=== PATIENT | female | born 1970 | race Caucasian/White ===

== ENCOUNTER → 2019-08-11 11:42 | Outpatient (BNVA) | payer MEDICAID, SELFPAY | PROVIDERS: Family Provider Family Medicine; PCP Family Medicine; Visit Provider Social Worker | DX: F33.2 Major depressive disorder, recurrent severe without psychotic features (principal); F41.1 Generalized anxiety disorder; F60.3 Borderline personality disorder | CPT/HCPCS: 90834 ==

== ENCOUNTER → 2019-08-17 12:25 | Outpatient (BNVA) | payer MEDICAID, SELFPAY | PROVIDERS: Family Provider Family Medicine; PCP Family Medicine; Visit Provider Nurse Practitioner Psychiatric/Mental Health | DX: F33.2 Major depressive disorder, recurrent severe without psychotic features (principal); F41.1 Generalized anxiety disorder; F60.3 Borderline personality disorder; F17.210 Nicotine dependence, cigarettes, uncomplicated | CPT/HCPCS: 99214; 99215 ==

== ENCOUNTER → 2019-09-01 10:53 | Outpatient (BNVA) | payer MEDICAID, SELFPAY | PROVIDERS: Family Provider Family Medicine; PCP Family Medicine; Visit Provider Social Worker | DX: F33.2 Major depressive disorder, recurrent severe without psychotic features (principal); F41.1 Generalized anxiety disorder; F60.3 Borderline personality disorder | CPT/HCPCS: 90834 ==

== ENCOUNTER → 2019-09-07 13:40 | Outpatient (BNVA) | payer MEDICAID, SELFPAY | PROVIDERS: Family Provider Family Medicine; PCP Family Medicine; Referring Provider Family Medicine; Visit Provider Podiatrist Foot & Ankle Surgery | DX: M79.672 Pain in left foot (principal); M25.572 Pain in left ankle and joints of left foot; M79.89 Other specified soft tissue disorders | CPT/HCPCS: 73600; 73630 ==

== ENCOUNTER → 2019-09-14 10:17 | Outpatient (BNVA) | payer MEDICAID, SELFPAY | PROVIDERS: Family Provider Family Medicine; PCP Family Medicine; Visit Provider Nurse Practitioner Psychiatric/Mental Health | DX: F33.2 Major depressive disorder, recurrent severe without psychotic features (principal); F41.1 Generalized anxiety disorder; F60.3 Borderline personality disorder; F17.210 Nicotine dependence, cigarettes, uncomplicated | CPT/HCPCS: 99214 ==

== ENCOUNTER → 2019-09-22 09:47 | Outpatient (BNVA) | payer MEDICAID, SELFPAY | PROVIDERS: Family Provider Family Medicine; PCP Family Medicine; Visit Provider Social Worker | DX: F60.3 Borderline personality disorder (principal); F41.1 Generalized anxiety disorder; F33.2 Major depressive disorder, recurrent severe without psychotic features | CPT/HCPCS: 90834 ==

== ENCOUNTER 2019-11-03 10:50 | Outpatient (CLI) | payer MEDICAID, SELFPAY ==
--- NOTE | 2019-11-03 | XR_ITS ---
WS: [id number] Left knee, 3 views weightbearing, 11/03/2019 Clinical Data: LT KNEE PAIN, BURSITIS Comparison: None. Findings: No fractures or dislocations are seen. The joint spaces are normal. The patella is intact. The soft t issues are unremarkable. XR/XR knee LT 3V* [id number] Impression: Negative left knee.
== END 2019-11-03 10:51 | disposition home or self-care (01) ==
LOC: RADOUTREAD 11:38
PROVIDERS: Family Provider Family Medicine; PCP Family Medicine; Visit Provider Family Medicine
DX: Z01.89 Encounter for other specified special examinations (principal)
CPT/HCPCS: 73562

== ENCOUNTER → 2019-11-07 14:04 | Outpatient (BNVA) | payer MEDICAID, SELFPAY | PROVIDERS: Family Provider Family Medicine; PCP Family Medicine; Visit Provider Social Worker | DX: F41.1 Generalized anxiety disorder (principal); F33.2 Major depressive disorder, recurrent severe without psychotic features; F60.3 Borderline personality disorder | CPT/HCPCS: 90834 ==

== ENCOUNTER → 2019-11-09 07:23 | Outpatient (BNVA) | payer MEDICAID, SELFPAY | PROVIDERS: Family Provider Family Medicine; PCP Family Medicine; Visit Provider Nurse Practitioner Psychiatric/Mental Health | DX: F33.2 Major depressive disorder, recurrent severe without psychotic features (principal); F60.3 Borderline personality disorder; F41.1 Generalized anxiety disorder; F17.210 Nicotine dependence, cigarettes, uncomplicated | CPT/HCPCS: 99214 ==

== ENCOUNTER → 2019-11-17 12:48 | Outpatient (BNVA) | payer MEDICAID, SELFPAY | PROVIDERS: Family Provider Family Medicine; PCP Family Medicine; Visit Provider Social Worker | DX: F33.2 Major depressive disorder, recurrent severe without psychotic features (principal); F41.1 Generalized anxiety disorder; F60.3 Borderline personality disorder | CPT/HCPCS: 90834 ==

== ENCOUNTER → 2019-12-08 08:22 | Outpatient (BNVA) | payer MEDICAID, SELFPAY | PROVIDERS: Family Provider Family Medicine; PCP Family Medicine; Visit Provider Social Worker | DX: F60.3 Borderline personality disorder (principal); F41.1 Generalized anxiety disorder; F33.2 Major depressive disorder, recurrent severe without psychotic features | CPT/HCPCS: 90834 ==

== ENCOUNTER → 2019-12-12 11:00 | Outpatient (BNVA) | payer MEDICAID, SELFPAY | PROVIDERS: Family Provider Family Medicine; Visit Provider Nurse Practitioner Psychiatric/Mental Health | DX: F33.2 Major depressive disorder, recurrent severe without psychotic features (principal); F60.3 Borderline personality disorder; F41.1 Generalized anxiety disorder; F17.210 Nicotine dependence, cigarettes, uncomplicated | CPT/HCPCS: 99214 ==

== ENCOUNTER → 2019-12-29 08:22 | Outpatient (BNVA) | payer MEDICAID, SELFPAY | PROVIDERS: Family Provider Family Medicine; PCP Family Medicine; Visit Provider Social Worker | DX: F60.3 Borderline personality disorder (principal); F41.1 Generalized anxiety disorder; F33.2 Major depressive disorder, recurrent severe without psychotic features | CPT/HCPCS: 90834 ==

== ENCOUNTER → 2020-01-11 07:40 | Outpatient (BNVA) | payer MEDICAID, SELFPAY | PROVIDERS: Family Provider Family Medicine; PCP Family Medicine; Visit Provider Nurse Practitioner Psychiatric/Mental Health | DX: F33.2 Major depressive disorder, recurrent severe without psychotic features (principal); F60.3 Borderline personality disorder; F41.1 Generalized anxiety disorder; F17.210 Nicotine dependence, cigarettes, uncomplicated; F40.01 Agoraphobia with panic disorder | CPT/HCPCS: 99214 ==

== ENCOUNTER → 2020-01-19 08:25 | Outpatient (BNVA) | payer MEDICAID, SELFPAY | PROVIDERS: Family Provider Family Medicine; PCP Family Medicine; Visit Provider Social Worker | DX: F60.3 Borderline personality disorder (principal); F41.1 Generalized anxiety disorder; F33.2 Major depressive disorder, recurrent severe without psychotic features | CPT/HCPCS: 90834 ==

== ENCOUNTER → 2020-01-31 14:54 | Outpatient (BNVA) | payer MEDICAID, SELFPAY | PROVIDERS: Family Provider Family Medicine; PCP Family Medicine; Visit Provider Nurse Practitioner Psychiatric/Mental Health | DX: Z79.899 Other long term (current) drug therapy (principal); F17.210 Nicotine dependence, cigarettes, uncomplicated | CPT/HCPCS: 80053; 80164 ==

== ENCOUNTER → 2020-02-08 07:40 | Outpatient (BNVA) | payer MEDICAID, SELFPAY | PROVIDERS: Family Provider Family Medicine; PCP Family Medicine; Visit Provider Nurse Practitioner Psychiatric/Mental Health | DX: F33.2 Major depressive disorder, recurrent severe without psychotic features (principal); F60.3 Borderline personality disorder; F41.1 Generalized anxiety disorder; F17.210 Nicotine dependence, cigarettes, uncomplicated | CPT/HCPCS: 99214 ==

== ENCOUNTER → 2020-03-14 08:27 | Outpatient (BNVA) | payer MEDICAID, SELFPAY | PROVIDERS: Family Provider Family Medicine; PCP Family Medicine; Visit Provider Nurse Practitioner Psychiatric/Mental Health | DX: F33.2 Major depressive disorder, recurrent severe without psychotic features (principal); F60.3 Borderline personality disorder; F41.1 Generalized anxiety disorder; F17.210 Nicotine dependence, cigarettes, uncomplicated | CPT/HCPCS: 99214 ==

== ENCOUNTER → 2020-04-04 09:59 | Outpatient (BNVA) | payer MEDICAID, SELFPAY | PROVIDERS: Family Provider Family Medicine; PCP Family Medicine; Visit Provider Social Worker Clinical | DX: F33.2 Major depressive disorder, recurrent severe without psychotic features (principal); F60.3 Borderline personality disorder; F41.1 Generalized anxiety disorder | CPT/HCPCS: 90834 ==

== ENCOUNTER → 2020-04-11 07:39 | Outpatient (BNVA) | payer MEDICAID, SELFPAY | PROVIDERS: Family Provider Family Medicine; Visit Provider Nurse Practitioner Psychiatric/Mental Health | DX: F33.2 Major depressive disorder, recurrent severe without psychotic features (principal); F60.3 Borderline personality disorder; F41.1 Generalized anxiety disorder; F17.210 Nicotine dependence, cigarettes, uncomplicated | CPT/HCPCS: 99214 ==

== ENCOUNTER 2020-04-17 07:38 | Outpatient (CLI) | payer MEDICAID, SELFPAY ==
--- NOTE | 2020-04-17 07:43 | MR_ITS ---
WS: [id number] MRI HEAD WITH CONTRAST TECHNIQUE: Sagittal T1, T2 axial, T2 axial FLAIR, axial susceptibility weighted imaging, axial diffus ion weighted images, and coronal T2 images were obtained. Pre and post-T1 axial and post T1 coronal i mages. ADC and FSPGR images. CLINICAL INFORMATION: ENCEPHALOPATHY COMPARISON: None. FINDINGS: No evidence of restricted diffusion to suggest acute ischemia. Ventricular system and basal cisterns are patent. Minimal small vessel changes. Moderate parenchymal volume loss. Normal posterior fossa. N ormal vascular flow voids at the skull base. No extra-axial fluid collections. Paranasal sinuses are well aerated. Mild mucosal thickening right mastoid air cells. No hemosiderin on the susceptibility weighted images. No abnormal gadolinium enhancement. Normal opti c chiasm and pituitary infundibulum.Normal cavernous sinuses and Meckel's cave. MR/MR head wo/w con [id number] IMPRESSION: 1. No evidence of restricted diffusion to suggest acute ischemia. 2. Minimal small vessel changes with moderate parenchymal volume loss. 3. Mild symmetric atrophy involving the temporal lobes and hippocampal formati ons. No underlying signal abnormalities. 4. No abnormal gadolinium enhancement. 5. Normal optic chiasm and pituitary infundibulum.
== END 2020-04-17 07:39 | disposition home or self-care (01) ==
LOC: RADSHAW 07:42
PROVIDERS: PCP Family Medicine; Visit Provider Physician Assistant
DX: G93.40 Encephalopathy, unspecified (principal); G31.9 Degenerative disease of nervous system, unspecified
CPT/HCPCS: 70553; A9579

== ENCOUNTER → 2020-04-19 08:17 | Outpatient (BNVA) | payer MEDICAID, SELFPAY | PROVIDERS: Family Provider Family Medicine; PCP Family Medicine; Visit Provider Social Worker Clinical | DX: F33.2 Major depressive disorder, recurrent severe without psychotic features (principal); F41.1 Generalized anxiety disorder; F60.3 Borderline personality disorder | CPT/HCPCS: 90834 ==

== ENCOUNTER → 2020-05-03 07:52 | Outpatient (BNVA) | payer MEDICAID, SELFPAY | PROVIDERS: Family Provider Family Medicine; Visit Provider Social Worker Clinical | DX: F60.3 Borderline personality disorder (principal); F41.1 Generalized anxiety disorder; F33.2 Major depressive disorder, recurrent severe without psychotic features | CPT/HCPCS: 90834 ==

== ENCOUNTER → 2020-05-16 07:50 | Outpatient (BNVA) | payer MEDICAID, SELFPAY | PROVIDERS: Family Provider Family Medicine; PCP Family Medicine; Visit Provider Nurse Practitioner Psychiatric/Mental Health | DX: F33.2 Major depressive disorder, recurrent severe without psychotic features (principal); F60.3 Borderline personality disorder; F41.1 Generalized anxiety disorder; F17.210 Nicotine dependence, cigarettes, uncomplicated | CPT/HCPCS: 99214 ==

== ENCOUNTER → 2020-05-24 07:58 | Outpatient (BNVA) | payer MEDICAID, SELFPAY | PROVIDERS: Family Provider Family Medicine; Visit Provider Social Worker Clinical | DX: F33.2 Major depressive disorder, recurrent severe without psychotic features (principal); F60.3 Borderline personality disorder; F41.1 Generalized anxiety disorder | CPT/HCPCS: 90834 ==

== ENCOUNTER → 2020-06-07 08:48 | Outpatient (BNVA) | payer MEDICAID, SELFPAY | PROVIDERS: Family Provider Family Medicine; Visit Provider Social Worker Clinical | DX: F33.2 Major depressive disorder, recurrent severe without psychotic features (principal); F41.1 Generalized anxiety disorder; F60.3 Borderline personality disorder | CPT/HCPCS: 90834 ==

== ENCOUNTER → 2020-07-04 11:00 | Outpatient (BNVA) | payer MEDICAID, SELFPAY | PROVIDERS: Family Provider Family Medicine; Visit Provider Social Worker Clinical | DX: F33.2 Major depressive disorder, recurrent severe without psychotic features (principal); F60.3 Borderline personality disorder | CPT/HCPCS: 90834 ==

== ENCOUNTER → 2020-07-11 07:47 | Outpatient (BNVA) | payer MEDICAID, SELFPAY | PROVIDERS: Family Provider Family Medicine; Visit Provider Nurse Practitioner Psychiatric/Mental Health | DX: F33.2 Major depressive disorder, recurrent severe without psychotic features (principal); F60.3 Borderline personality disorder; F41.1 Generalized anxiety disorder; F17.210 Nicotine dependence, cigarettes, uncomplicated | CPT/HCPCS: 99214 ==

== ENCOUNTER → 2020-07-12 08:00 | Outpatient (BNVA) | payer MEDICAID, SELFPAY | PROVIDERS: Family Provider Family Medicine; Visit Provider Social Worker Clinical | DX: F33.2 Major depressive disorder, recurrent severe without psychotic features (principal) | CPT/HCPCS: 90834 ==

== ENCOUNTER → 2020-07-26 08:54 | Outpatient (BNVA) | payer MEDICAID, SELFPAY | PROVIDERS: Family Provider Family Medicine; Visit Provider Social Worker Clinical | DX: F33.2 Major depressive disorder, recurrent severe without psychotic features (principal); F41.1 Generalized anxiety disorder | CPT/HCPCS: 90834 ==

== ENCOUNTER → 2020-08-08 08:15 | Outpatient (BNVA) | payer MEDICAID, SELFPAY | PROVIDERS: Family Provider Family Medicine; Visit Provider Social Worker Clinical | DX: F60.3 Borderline personality disorder (principal); F41.1 Generalized anxiety disorder; F33.2 Major depressive disorder, recurrent severe without psychotic features | CPT/HCPCS: 90834 ==

== ENCOUNTER → 2020-09-20 07:59 | Outpatient (BNVA) | payer MEDICAID, SELFPAY | PROVIDERS: Family Provider Family Medicine; Visit Provider Nurse Practitioner Psychiatric/Mental Health | DX: F33.2 Major depressive disorder, recurrent severe without psychotic features (principal); F60.3 Borderline personality disorder; F41.1 Generalized anxiety disorder; F17.210 Nicotine dependence, cigarettes, uncomplicated | CPT/HCPCS: 99214 ==

== ENCOUNTER → 2020-10-22 07:36 | Outpatient (BNVA) | payer MEDICAID, SELFPAY | PROVIDERS: PCP Family Medicine; Visit Provider Nurse Practitioner Psychiatric/Mental Health | DX: F33.2 Major depressive disorder, recurrent severe without psychotic features (principal); F60.3 Borderline personality disorder; F41.1 Generalized anxiety disorder; F17.210 Nicotine dependence, cigarettes, uncomplicated | CPT/HCPCS: 99214 ==

== ENCOUNTER → 2020-11-23 07:57 | Outpatient (BNVA) | payer MEDICAID, SELFPAY | PROVIDERS: PCP Family Medicine; Visit Provider Nurse Practitioner Psychiatric/Mental Health | DX: F33.2 Major depressive disorder, recurrent severe without psychotic features (principal); F60.3 Borderline personality disorder; F41.1 Generalized anxiety disorder; F17.210 Nicotine dependence, cigarettes, uncomplicated | CPT/HCPCS: 99214 ==

== ENCOUNTER → 2020-11-28 10:12 | Outpatient (BNVA) | payer MEDICAID, SELFPAY | PROVIDERS: PCP Family Medicine; Visit Provider Family Medicine | DX: Z20.822 Contact with and (suspected) exposure to COVID-19 (principal); R06.00 Dyspnea, unspecified | CPT/HCPCS: 87635 ==

== ENCOUNTER 2020-12-03 07:45 | Outpatient (CLI) | payer MEDICAID, SELFPAY ==
--- NOTE | 2020-12-03 11:02 | PFTS_ITS ---
Date of Study:12/03/20 Date of Dictation: 12/04/2020 MECHANICS: Postbronchodilator forced vital capacity (FVC) is reduced. Postbronchodilator forced expiratory volume in one second (FEV1) is moderately reduced 60% FEV1/FVC is reduced. There is significant response to bronchodilators.. FLOW VOLUME LOOP: Sloping of expiratory limb suggestive of airway obstruction. LUNG VOLUMES: TLC is normal. RV is moderately increased 161% suggestive of air trapping. DIFFUSING CAPACITY FOR CARBON MONOXIDE: Mildly reduced 71% . INTERPRETATION: The spirometry consistent with moderate obstructive ventilatory defect. There is significant bronchodilator response. Lung volumes suggestive of moderate air trapping. There is mild gas transfer defect 71%. Please correlate clinically. MTDD
== END 2020-12-03 07:46 | disposition home or self-care (01) ==
PROVIDERS: PCP Family Medicine; Visit Provider Family Medicine
DX: R06.00 Dyspnea, unspecified (principal)
CPT/HCPCS: 94060; 94726; 94729; J7611

== ENCOUNTER → 2020-12-12 08:30 | Outpatient (BNVA) | payer MEDICAID, SELFPAY | PROVIDERS: PCP Family Medicine; Visit Provider Nurse Practitioner Psychiatric/Mental Health | DX: F33.2 Major depressive disorder, recurrent severe without psychotic features (principal); F60.3 Borderline personality disorder; F41.1 Generalized anxiety disorder; F17.210 Nicotine dependence, cigarettes, uncomplicated | CPT/HCPCS: 99214 ==

== ENCOUNTER → 2020-12-17 13:03 | Outpatient (BNVA) | payer MEDICAID, SELFPAY | PROVIDERS: PCP Family Medicine; Visit Provider Podiatrist Foot & Ankle Surgery | DX: M79.671 Pain in right foot (principal) | CPT/HCPCS: 73630 ==

== ENCOUNTER → 2020-12-18 09:06 | Outpatient (BNVA) | payer MEDICAID, SELFPAY | PROVIDERS: PCP Family Medicine; Visit Provider Podiatrist Foot & Ankle Surgery | DX: M20.21 Hallux rigidus, right foot (principal); Z20.822 Contact with and (suspected) exposure to COVID-19 | CPT/HCPCS: 87635 ==

== ENCOUNTER 2020-12-21 08:25 | Day surgery (SDC) | payer MEDICAID, SELFPAY ==
[2020-12-20 17:15] VITALS: BMI 32.8
[2020-12-21 08:38] VITALS: BP 139/93; PULSE 89; RESP 18; TEMP 36.8; O2SAT 98
--- NOTE | 2020-12-21 09:09 | W.PM.OPSUD ---
Surgery/Procedure H&P Update DATE OF PROCEDURE: December 21, 2020 DATE H&P PERFORMED: 12/17/20 H&P UPDATE INFORMATION: I have reviewed H&P completed within last 30 days, I have examined patient prior to procedure, No changes to prior documentation and H&P is in [facility] [place] date indicated PREOP DIAGNOSIS: Hallux rigidus, right PLANNED PROCEDURE: Operation Date: 12/21/20 09:55 Proposed Procedures p Cheilectomy, right foot/ CPT code: 34799 M20.21(Right) - Bandar Alicea DPM
--- NOTE | 2020-12-21 09:22 | ANES.PREANE2 ---
Pre-Anesthetic Assessment Pre-Anesthetic Assessment: Height/Weight: Height 1.6 m Weight 83.915 kg Temp Pulse Resp BP Pulse Ox 98.3 F 89 18 139/93 98 12/21/20 08:38 12/21/20 08:38 12/21/20 08:38 12/21/20 08:38 12/21/20 08:38 Preop Diagnosis: Hallux rigidus, right Proposed Procedure: Operation Date: 12/21/20 09:55 Proposed Procedures p Cheilectomy, right foot/ CPT code: 69409 M20.21(Right) - Bandar Alicea DPM Was Beta Nick taken within 24 hours: N/A Was Clonidine taken within 24 hours: N/A Social: Social History: Tobacco Exam: Pre-Anes Outpt Exam: alert, oriented x 3, clear to auscultation bilaterally and regular rate & rhythm Airway: Submandibular: WNL Cervical ROM: WNL MP: 2 Dentition: Chipped History/ROS: No significant history except as noted and No significant complaints Pulmonary: Pulmonary: COPD CV/HEM: CV/HEM: None reported : : None reported Hepatic: Hepatic: None reported GI: GI: None reported Metabolic: Metabolic: None reported Musc/skel: Musc/skel: None reported Neuropsych: Neuropsych: Bipolar Anesthetic Plan: ASA status: 2 Anesthesia: Anesthesia Evaluation and MAC Risk of > 500 ml blood loss (7ml/kg in children): No PFSH Anesthesia PFSH: Medical History Borderline personality disorder Cigarette smoker motivated to quit Generalized anxiety disorder Major depressive disorder, recurrent severe without psychotic features Nicotine dependence, cigarettes, uncomplicated Family History Brother Stroke Father CAD (coronary artery disease) Grandmother Cancer Lung disease Social History Smoking and tobacco status: current every day smoker cigarettes [ Other cigarette details: Also uses nicotine patches ] Quit status (tobacco): has tried quititng Number of times tried to quit tobacco: 1 Second hand smoke exposure: Yes Smoking risk assessment/counseling performed?: No Alcohol intake: never Marital status: Current occupational status: disabled Current occupation: Waiting for disability Current gender identity: Female Female Reproductive History: Date of last menstrual period: 12/30/17 Data Anesthesia Cardiac Studies: No Data to Display
--- NOTE | 2020-12-21 10:20 | P.OP_ITS ---
Operative Report Date of procedure: December 21, 2020 Pre-op Diagnosis: Hallux rigidus, right Post-op diagnosis: same Post-op Findings: Right hallux rigidus Procedure Done: Cheilectomy, right foot/ CPT code: 79624 Implants: 3-0 Vicryl, 4-0 Vicryl, 4-0 nylon Specimens removed/disposition: None Pathology: none sent Surgeon: Bandar Alicea D.P.M. Contracts Analyst: Nacho Anesthesia: MAC Estimated blood loss: Less than 5 mL Tourniquet time: 30 minutes IV fluids: None Urine output: None Complications: None Findings: Loose chondral bodies and bony hypertrophy with joint space narrowing at the right first metatarsophalangeal joint. Condition: stable Disposition: PACU Brief History: Patient has a progression of pain at her right great toe with stiffness and reduced motion. She has had pain on a daily basis and at this point is no longer responding to anti-inflammatories and supportive shoes, stretching and activity modifications. Pain is daily with simple activities. She would like to discuss surgical options. I recommended a cheilectomy as our initial approach and reserve arthrodesis or joint replacement down the road. Discussed risks and benefits. Risks include pain, bleeding, numbness, infection, recurrence of deformity, progression of arthritic changes to the right great toe and need for further surgical intervention, altered function, damage to adjacent soft tissue structures, numbness and swelling. Informed consent signed by myself and patient. She is n.p.o. since midnight. I initialed the right foot. Patient is agreeable wishes to proceed no guarantees written, expressed or implied. Procedure: Under mild sedation the patient was brought to the operating room and placed on the operating table in supine position. A timeout was performed. Anesthesia was then administered by the anesthesia service. Local anesthesia injected by myself 30 cc of 0.5% Marcaine plain and a right Ruggiero block fashion. Well-padded pneumatic tourniquet applied to the right ankle. Right lower extremity was then scrubbed, prepped and draped utilizing normal aseptic technique. Attention was directed to the dorsal medial aspect of the right first metatarsophalangeal joint where a linear longitudinal incision was made medial and parallel to the extensor houses longus tendon. Dissection was carried down to the level of periosteum and joint capsule which was reflected medially and laterally. Care was taken to preserve and retract neurovascular and tendinous structures. All bleeders were ligated and cauterized as necessary. Head of the first metatarsal was then remodeled to anatomical position utilizing a sagittal saw a rongeur and hand rasp. Attention was then directed to the base of the proximal phalanx of the right hallux where loose chondral bodies were removed utilizing a rongeur and restoring normal curvature and anatomy at the base of the proximal phalanx. Incision was flushed with saline solution. There was joint space narrowing and decreased cartilage observed however there was significant improved range of motion with 55 degrees of dorsiflexion appreciated intraoperatively compared to 20 degrees preoperatively. Incision was further flushed with saline solution and joint capsule closed utilizing 3-0 Vicryl. Subcutaneous tissue closed utilizing 4-0 Vicryl and skin with 4-0 nylon. Incision was dressed with Adaptic, sterile 4 x 4, Kerlix and Gonzalez wrap. Prior to dressings 10 mL of Exparel was injected in a grid like fashion per manufacture recommendation and standard protocol. Cam boot was applied to the right lower extremity. Tourniquet was deflated and a prompt hyperemic response is noted to the distal digits of the right foot. Patient tolerated the procedure and anesthesia well and was transferred to the PACU with vital signs stable\status intact. Following a period of postoperative monitoring she will be discharged home was provided a prescription for pain medication may be weightbearing as tolerated with a cam boot. Will follow-up next week as instructions on discharge paperwork.
[2020-12-21 10:21] VITALS: BP 106/75; PULSE 82; RESP 18; TEMP 36.7; O2SAT 100
[2020-12-21 10:25] VITALS: BP 100/70; PULSE 80; RESP 18; O2SAT 96
--- NOTE | 2020-12-21 10:27 | XR_ITS ---
WS: [id number] RIGHT FOOT: 3 VIEW(S) TECHNIQUE: AP, oblique and lateral. HISTORY: post op COMPARISON: 12/17/2020 Postoperative changes in the soft tissues adjacent to the medial first metatarsal head. Cortical irre gularity and osteophyte at the first metatarsophalangeal joint has been surgically removed. Normal tarsal/metatarsal alignment. Large amount of soft tissue edema around the foot. XR/XR foot RT min 3V* [id number] IMPRESSION: Postoperative changes adjacent to the medial first metatarsal head with removal of the osteophyte from the first metatarsal head.
[2020-12-21 10:35] VITALS: BP 100/84; PULSE 81; RESP 18; TEMP 36.4; O2SAT 98
[2020-12-21 10:43] VITALS: BP 129/85; PULSE 73; RESP 17; TEMP 36.3; O2SAT 96
--- NOTE | 2020-12-21 13:15 | ANE.PACU2 ---
Inpatient post-anesthesia follow up: Airway intact: Yes Vital signs: Temperature 97.3 F Pulse Rate 73 Respiratory Rate 17 Blood Pressure 129/85 Pulse Oximetry 96 Oxygen Delivery Me thod Room Air Oxygen Flow Rate Fraction of Inspir ed Oxygen Hydration adequate: Yes Nausea and vomiting: No Pain level: 2 Mental status: Baseline
== END 2020-12-21 11:00 | disposition home or self-care (01) ==
PROVIDERS: PCP Family Medicine; Visit Provider Podiatrist Foot & Ankle Surgery
PROC: (CPT 28289; principal; 2020-12-21 09:45)
DX: M20.21 Hallux rigidus, right foot (principal); J44.9 Chronic obstructive pulmonary disease, unspecified; F17.210 Nicotine dependence, cigarettes, uncomplicated
CPT/HCPCS: 28289; 73630; 96365; C9290; J0690; J2250; J2704; J3490

== ENCOUNTER → 2021-01-15 07:33 | Outpatient (BNVA) | payer MEDICAID, SELFPAY | PROVIDERS: PCP Family Medicine; Visit Provider Nurse Practitioner Psychiatric/Mental Health | DX: F33.2 Major depressive disorder, recurrent severe without psychotic features (principal); F60.3 Borderline personality disorder; F41.1 Generalized anxiety disorder; F17.210 Nicotine dependence, cigarettes, uncomplicated | CPT/HCPCS: 99214 ==

== ENCOUNTER 2021-01-21 09:41 | Outpatient (CLI) | payer MEDICAID, SELFPAY ==
--- NOTE | 2021-01-21 09:50 | CT_ITS ---
WS: [id number] CT CHEST WITH INTRAVENOUS CONTRAST HISTORY: DECREASED DIFFUSION CAPACITY TECHNIQUE: Contiguous 5 mm axial imaging performed on the thorax. Coronal and sagittal reformats are submitted. All CT scans at [facility] use at least one of these dose optimization techniq ues: automated exposure control; mA and/or kV adjustment per patient size (includes targeted exams wh ere dose is matched to clinical indication); or iterative reconstruction. CONTRAST: Omnipaque 300; 95 mL IV. DLP: 750.81 mGycm COMPARISON: None available. Lungs and central airway: Mild diffuse groundglass attenuation over both lungs. Findings likely relat ed to emphysema. No suspicious mass or pneumonia. No nodules. Pleura: Normal. No pleural effusion. Heart and pericardium: Normal size heart with no pericardial effusion. Mediastinum and arjun: No mediastinum or hilar adenopathy. Vessels: Mild atherosclerosis of the aorta. Normal size pulmonary artery. No aneurysms. Chest wall and lower neck: No soft tissue masses. Upper abdomen: 1.2 cm LEFT hepatic cyst. There is mild heterogeneity within the liver with steatosis along the falciform ligament. Very small mild thickening of the LEFT adrenal gland. No mass. Gallblad shauna is slightly contracted. Osseous structures: No destructive process. CT/CT chest w con* [id number] IMPRESSION: 1. Mild centrilobular emphysema. No pneumonia. No mass. 2. Mild atherosclerosis aorta. 3. Hepatic cyst LEFT lobe.
[2021-01-21] MEDS: iohexol 300 mg/mL 100 mL Btl IV (10:15)
== END 2021-01-21 09:42 | disposition home or self-care (01) ==
PROVIDERS: PCP Family Medicine; Visit Provider Family Medicine
DX: R94.2 Abnormal results of pulmonary function studies (principal); J43.2 Centrilobular emphysema; I70.0 Atherosclerosis of aorta; K76.89 Other specified diseases of liver
CPT/HCPCS: 71260; Q9967

== ENCOUNTER → 2021-01-31 09:08 | Outpatient (BNVA) | payer MEDICAID, SELFPAY | PROVIDERS: PCP Family Medicine; Visit Provider Podiatrist Foot & Ankle Surgery | DX: M20.21 Hallux rigidus, right foot (principal) | CPT/HCPCS: 73630 ==

== ENCOUNTER → 2021-02-19 07:05 | Outpatient (BNVA) | payer MEDICAID, SELFPAY | PROVIDERS: PCP Family Medicine; Visit Provider Nurse Practitioner Psychiatric/Mental Health | DX: F33.2 Major depressive disorder, recurrent severe without psychotic features (principal); F60.3 Borderline personality disorder; F41.1 Generalized anxiety disorder; F17.210 Nicotine dependence, cigarettes, uncomplicated | CPT/HCPCS: 99214 ==

== ENCOUNTER → 2021-03-26 07:40 | Outpatient (BNVA) | payer MEDICAID, SELFPAY | PROVIDERS: PCP Family Medicine; Visit Provider Nurse Practitioner Psychiatric/Mental Health | DX: F33.2 Major depressive disorder, recurrent severe without psychotic features (principal); F60.3 Borderline personality disorder; F41.1 Generalized anxiety disorder; F17.210 Nicotine dependence, cigarettes, uncomplicated | CPT/HCPCS: 99214 ==

== ENCOUNTER → 2021-05-02 07:39 | Outpatient (BNVA) | payer MEDICAID, SELFPAY | PROVIDERS: PCP Family Medicine; Visit Provider Nurse Practitioner Psychiatric/Mental Health | DX: F33.2 Major depressive disorder, recurrent severe without psychotic features (principal); F60.3 Borderline personality disorder; F41.1 Generalized anxiety disorder; F17.210 Nicotine dependence, cigarettes, uncomplicated | CPT/HCPCS: 99214 ==

== ENCOUNTER → 2021-06-03 08:33 | Outpatient (BNVA) | payer MEDICAID, SELFPAY | PROVIDERS: PCP Family Medicine; Visit Provider Nurse Practitioner Psychiatric/Mental Health | DX: F33.2 Major depressive disorder, recurrent severe without psychotic features (principal); F60.3 Borderline personality disorder; F41.1 Generalized anxiety disorder; F17.210 Nicotine dependence, cigarettes, uncomplicated | CPT/HCPCS: 99214 ==

== ENCOUNTER → 2021-06-18 08:29 | Outpatient (BNVA) | payer MEDICAID, SELFPAY | PROVIDERS: PCP Family Medicine; Visit Provider Nurse Practitioner Psychiatric/Mental Health | DX: F33.2 Major depressive disorder, recurrent severe without psychotic features (principal); F60.3 Borderline personality disorder; F41.1 Generalized anxiety disorder; F17.210 Nicotine dependence, cigarettes, uncomplicated | CPT/HCPCS: 99214 ==

== ENCOUNTER → 2021-07-02 08:07 | Outpatient (BNVA) | payer MEDICAID, SELFPAY | PROVIDERS: PCP Family Medicine; Visit Provider Nurse Practitioner Psychiatric/Mental Health | DX: F33.2 Major depressive disorder, recurrent severe without psychotic features (principal); F60.3 Borderline personality disorder; F41.1 Generalized anxiety disorder; F17.210 Nicotine dependence, cigarettes, uncomplicated | CPT/HCPCS: 99214 ==

== ENCOUNTER → 2021-07-16 08:32 | Outpatient (BNVA) | payer MEDICAID, SELFPAY | PROVIDERS: PCP Family Medicine; Visit Provider Nurse Practitioner Psychiatric/Mental Health | DX: F33.2 Major depressive disorder, recurrent severe without psychotic features (principal); F60.3 Borderline personality disorder; F41.1 Generalized anxiety disorder; F17.210 Nicotine dependence, cigarettes, uncomplicated | CPT/HCPCS: 99214 ==

== ENCOUNTER → 2021-07-30 08:13 | Outpatient (BNVA) | payer MEDICAID, SELFPAY | PROVIDERS: PCP Family Medicine; Visit Provider Nurse Practitioner Psychiatric/Mental Health | DX: F33.2 Major depressive disorder, recurrent severe without psychotic features (principal); F60.3 Borderline personality disorder; F41.1 Generalized anxiety disorder; F17.210 Nicotine dependence, cigarettes, uncomplicated | CPT/HCPCS: 99214 ==

== ENCOUNTER → 2021-08-13 07:36 | Outpatient (BNVA) | payer MEDICARE, MEDICAID, SELFPAY | PROVIDERS: PCP Family Medicine; Visit Provider Nurse Practitioner Psychiatric/Mental Health | DX: F33.2 Major depressive disorder, recurrent severe without psychotic features (principal); F60.3 Borderline personality disorder; F41.1 Generalized anxiety disorder; F17.210 Nicotine dependence, cigarettes, uncomplicated | CPT/HCPCS: 99214 ==

== ENCOUNTER → 2021-09-10 08:07 | Outpatient (BNVA) | payer MEDICARE, MEDICAID, SELFPAY | PROVIDERS: PCP Family Medicine; Visit Provider Nurse Practitioner Psychiatric/Mental Health | DX: F33.2 Major depressive disorder, recurrent severe without psychotic features (principal); F60.3 Borderline personality disorder; F41.1 Generalized anxiety disorder; F17.210 Nicotine dependence, cigarettes, uncomplicated | CPT/HCPCS: 99214 ==

== ENCOUNTER → 2021-10-08 08:16 | Outpatient (BNVA) | payer MEDICARE, MEDICAID, SELFPAY | PROVIDERS: PCP Family Medicine; Visit Provider Nurse Practitioner Psychiatric/Mental Health | DX: F33.2 Major depressive disorder, recurrent severe without psychotic features (principal); F60.3 Borderline personality disorder; F41.1 Generalized anxiety disorder; F17.210 Nicotine dependence, cigarettes, uncomplicated | CPT/HCPCS: 99214 ==

== ENCOUNTER → 2021-10-16 08:53 | Outpatient (BNVA) | payer MEDICARE, MEDICAID, SELFPAY | PROVIDERS: PCP Family Medicine; Visit Provider Family Medicine | DX: Z20.822 Contact with and (suspected) exposure to COVID-19 (principal); E87.5 Hyperkalemia | CPT/HCPCS: 80048; 82533; 87635 ==

== ENCOUNTER → 2021-10-23 07:58 | Outpatient (BNVA) | payer MEDICARE, MEDICAID, SELFPAY | PROVIDERS: PCP Family Medicine; Visit Provider Internal Medicine Critical Care Medicine | DX: J44.9 Chronic obstructive pulmonary disease, unspecified (principal); F17.210 Nicotine dependence, cigarettes, uncomplicated; F33.2 Major depressive disorder, recurrent severe without psychotic features | CPT/HCPCS: 99214 ==

== ENCOUNTER → 2021-10-31 09:30 | Outpatient (BNVA) | payer MEDICARE, MEDICAID, SELFPAY | PROVIDERS: PCP Family Medicine; Visit Provider Family Medicine | DX: Z20.822 Contact with and (suspected) exposure to COVID-19 (principal) | CPT/HCPCS: 87635 ==

== ENCOUNTER → 2021-11-05 07:26 | Outpatient (BNVA) | payer MEDICARE, MEDICAID, SELFPAY | PROVIDERS: PCP Family Medicine; Visit Provider Nurse Practitioner Psychiatric/Mental Health | DX: F33.2 Major depressive disorder, recurrent severe without psychotic features (principal); F60.3 Borderline personality disorder; F41.1 Generalized anxiety disorder; F17.210 Nicotine dependence, cigarettes, uncomplicated | CPT/HCPCS: 99214 ==

== ENCOUNTER 2021-11-07 12:50 | Outpatient (CLI) | payer MEDICARE, MEDICAID, SELFPAY ==
--- NOTE | 2021-11-07 14:30 | PFTS_ITS ---
Date of Study:11/07/21 Date of Dictation: MECHANICS: Forced vital capacity (FVC) is normal. Forced expiratory volume in one second (FEV1) is reduced. FEV1/FVC is reduced. FLOW VOLUME LOOP: Reduced flow at all lung volumes with significant scooping. LUNG VOLUMES: Total lung capacity (TLC) is increased. Residual volume (RV) is increased. DIFFUSING CAPACITY FOR CARBON MONOXIDE: Mild reduced. INTERPRETATION: The pulmonary function tests are consistent with moderate airflow obstruction. There is no significant postbronchodilator response. Lung volumes are consistent with hyperinflation and air trapping. Gas exchange (DLCO) is mildly reduced. MTDD
== END 2021-11-07 12:51 | disposition home or self-care (01) ==
LOC: RT 12:54
PROVIDERS: PCP Family Medicine; Visit Provider Family Medicine
DX: J44.9 Chronic obstructive pulmonary disease, unspecified (principal)
CPT/HCPCS: 94060; 94726; 94729; J7611

== ENCOUNTER → 2021-12-03 13:21 | Outpatient (BNVA) | payer MEDICARE, MEDICAID, SELFPAY | PROVIDERS: PCP Family Medicine; Visit Provider Nurse Practitioner Psychiatric/Mental Health | DX: Z63.4 Disappearance and death of family member (principal); F33.2 Major depressive disorder, recurrent severe without psychotic features; F60.3 Borderline personality disorder; F41.1 Generalized anxiety disorder; F17.210 Nicotine dependence, cigarettes, uncomplicated | CPT/HCPCS: 99214 ==

== ENCOUNTER → 2021-12-31 11:09 | Outpatient (BNVA) | payer MEDICARE, MEDICAID, SELFPAY | PROVIDERS: PCP Family Medicine; Visit Provider Nurse Practitioner Psychiatric/Mental Health | DX: F33.2 Major depressive disorder, recurrent severe without psychotic features (principal); F60.3 Borderline personality disorder; F41.1 Generalized anxiety disorder; F17.210 Nicotine dependence, cigarettes, uncomplicated; Z63.4 Disappearance and death of family member | CPT/HCPCS: 99214 ==

== ENCOUNTER → 2022-01-14 07:23 | Outpatient (BNVA) | payer MEDICARE, MEDICAID, SELFPAY | PROVIDERS: PCP Family Medicine; Visit Provider Nurse Practitioner Psychiatric/Mental Health | DX: Z63.4 Disappearance and death of family member (principal); F33.2 Major depressive disorder, recurrent severe without psychotic features; F41.1 Generalized anxiety disorder; F60.3 Borderline personality disorder; F17.210 Nicotine dependence, cigarettes, uncomplicated | CPT/HCPCS: 99214 ==

== ENCOUNTER → 2022-02-13 09:43 | Outpatient (BNVA) | payer MEDICARE, MEDICAID, SELFPAY | PROVIDERS: PCP Family Medicine; Visit Provider Internal Medicine Critical Care Medicine | DX: J44.9 Chronic obstructive pulmonary disease, unspecified (principal); F33.2 Major depressive disorder, recurrent severe without psychotic features; Z87.891 Personal history of nicotine dependence | CPT/HCPCS: 99214 ==

== ENCOUNTER → 2022-02-26 13:07 | Outpatient (BNVA) | payer MEDICARE, MEDICAID, OTHER, SELFPAY | PROVIDERS: PCP Family Medicine; Referring Provider Family Medicine; Visit Provider Orthopaedic Surgery | DX: M25.561 Pain in right knee (principal) | CPT/HCPCS: 99203 ==

== ENCOUNTER 2022-03-24 07:53 | Outpatient (CLI) | payer MEDICARE, MEDICAID, SELFPAY ==
--- NOTE | 2022-03-24 08:01 | FL_ITS ---
WS: [id number] Exam: FL barium swallow [id number] Date/Time of Exam: 03/24/2022 8:35 AM Reason For Exam: PAIN IN THROAT/DYSPHAGIA, OROPHARYNGEAL PHASE Fluoroscopy time: 2min [id number] minutes # of spot films: 9 Swallowing function at the level of the oropharynx was normal. No aspiration or penetration seen. The esophagus is smooth in contour with normal motility. No hiatal hernia or gastroesophageal reflux. Th e esophagus is not displaced. FL/FL barium swallow [id number] IMPRESSION: 1. No sign of mass, stricture, motility disorder or other significant finding. Negative.
== END 2022-03-24 07:54 | disposition home or self-care (01) ==
LOC: RAD 07:53
PROVIDERS: PCP Family Medicine; Visit Provider Specialist
DX: R07.0 Pain in throat (principal); R13.12 Dysphagia, oropharyngeal phase
CPT/HCPCS: 74220

== ENCOUNTER 2022-07-23 13:14 | Outpatient (CLI) | payer MEDICARE, MEDICAID, SELFPAY ==
--- NOTE | 2022-07-23 13:25 | MM_ITS ---
WS: [id number] BILATERAL 3D TOMOSYNTHESIS DIGITAL SCREENING MAMMOGRAPHY WITH CAD CLINICAL INFORMATION: SCREENING HISTORY: Screening mammogram. No current complaints. COMPARISON: 2017 2018. TECHNIQUE: Bilateral CC and MLO views. FINDINGS: Scattered fibroglandular densities bilaterally. No suspicious focal mass, asymmetry, calcifications, or architectural distortion. No evidence of malignancy. MM/[place] [id number] IMPRESSION: BI-RADS: 1-Negative FOLLOW UP: 1 Year Follow-up Recommend return to annual screening mammography.
== END 2022-07-23 13:15 | disposition home or self-care (01) ==
LOC: RAD 13:16
PROVIDERS: PCP Family Medicine; Visit Provider Family Medicine
DX: Z12.31 Encounter for screening mammogram for malignant neoplasm of breast (principal)
CPT/HCPCS: 77063; 77067

== ENCOUNTER 2022-08-18 12:51 | Outpatient (CLI) | payer MEDICARE, MEDICAID, SELFPAY ==
--- NOTE | 2022-08-18 13:23 | CT_ITS ---
WS: [id number] LDCT LUNG CANCER SCREENING TECHNIQUE: Noncontrast CT of the chest with coronal and sagittal reformatted images. CLINICAL INFORMATION: SMOKER COMPARISON: CT chest January 21, 2021 DLP: 78.01 mGy.cm DIvol: Mean CTDIvol: 1.60 (mGy) All CT scans at [facility] use at least one of these dose optimization techniques: automat ed exposure control; mA and/or kV adjustment per patient size (includes targeted exams where dose is matched to clinical indication); or iterative reconstruction. FINDINGS: Mild centrilobular emphysematous changes. Slight fibrosis in the lung apices. No suspicious pulmonary parenchymal abnormalities. Aortic calcification. Normal caliber thoracic aorta. No mediastinal or hilar lymphadenopathy.Small LE FT adrenal adenoma.RIGHT Adrenal gland is normal. Normal GE junction. Stable LEFT hepatic cyst. Mild spondylitic changes thoracic spine. Slight atelectasis in the lingula. CT/CT lung screening [id number] IMPRESSION: LUNG-RADS: 1-Negative FOLLOW UP: 12 Month: Continue annual screening with LDCT
== END 2022-08-18 12:52 | disposition home or self-care (01) ==
LOC: RAD 12:54
PROVIDERS: PCP Family Medicine; Visit Provider Internal Medicine Critical Care Medicine
DX: Z12.2 Encounter for screening for malignant neoplasm of respiratory organs (principal); F17.210 Nicotine dependence, cigarettes, uncomplicated
CPT/HCPCS: 71271

== ENCOUNTER → 2022-08-26 12:17 | Outpatient (BNVA) | payer OTHER, SELFPAY | PROVIDERS: PCP Family Medicine; Visit Provider Nurse Practitioner Psychiatric/Mental Health | DX: Z79.899 Other long term (current) drug therapy (principal) | CPT/HCPCS: 80053; 80061; 82306; 83036 ==

== ENCOUNTER → 2022-11-20 14:14 | Outpatient (BNVA) | payer MEDICARE, MEDICAID, SELFPAY | PROVIDERS: PCP Family Medicine; Referring Provider Dermatology; Visit Provider Physician Assistant | DX: M47.816 Spondylosis without myelopathy or radiculopathy, lumbar region (principal) | CPT/HCPCS: 72110; 99203 ==

== ENCOUNTER → 2022-12-08 09:39 | Outpatient (BNVA) | payer MEDICARE, MEDICAID, SELFPAY | PROVIDERS: PCP Family Medicine; Visit Provider Podiatrist Foot & Ankle Surgery | DX: M19.172 Post-traumatic osteoarthritis, left ankle and foot (principal); S92.012S Displaced fracture of body of left calcaneus, sequela; M19.072 Primary osteoarthritis, left ankle and foot; M24.572 Contracture, left ankle; M72.2 Plantar fascial fibromatosis; M79.672 Pain in left foot; X58.XXXS Exposure to other specified factors, sequela | CPT/HCPCS: 73630; 99214 ==

== ENCOUNTER 2023-01-02 07:37 | Day surgery (SDC) | payer MEDICARE, MEDICAID, SELFPAY ==
[2023-01-01 13:28] VITALS: BMI 25.4
[2023-01-02] VITALS (14 sets, daily range): BP systolic 102–147; BP diastolic 65–92; PULSE 65–83; RESP 14–20; TEMP 36.1–36.6; O2SAT 94–100
--- NOTE | 2023-01-02 | XR_ITS ---
WS: [id number] C-ARM RADIOGRAPHS LEFT CALCANEUS; 1 IMAGES HISTORY: FARRAH PERALTA COMPARISON: Foot radiograph 12/08/2022 Intraoperative imaging during screw fixation across the talocalcaneal joint. XR/XR calcaneus LT min 2V [id number] IMPRESSION: Intraoperative imaging during fixation calcaneal fracture.
[2023-01-02] MEDS: sodium chloride 0.9% 1,000 ML 30 ML IV (09:16)
--- NOTE | 2023-01-02 09:55 | W.PM.OPSUD ---
Surgery/Procedure H&P Update DATE OF PROCEDURE: January 02, 2023 DATE H&P PERFORMED: 12/08/22 CHANGES TO PREVIOUS DOCUMENTATION: Cortisone injection to the right first metatarsal phalangeal joint PREOP DIAGNOSIS: Posttraumatic arthritis left subtalar joint, left gastrocnemius equinus PLANNED PROCEDURE: Operation Date: 01/02/23 09:25 Proposed Procedures p Cortisone injection right plantar fascia, Left gastrocnemius recession and Left subtalar joint fusion 34149, 06317 ,16138(Left) - Bandar Alicea DPM s Gastrocnemius Recession(Left) - Bandar Alicea DPM s Cortisone injection right plantar fascia, Left gastrocnemius recession and Left subtalar joint fusion, Cortisone injection right plantar fascia, Left gastrocnemius recession and Left subtalar joint fusion, M72.2, M62.462, M19.172, S92.012S, M19.072(Left) - Bandar Alicea DPM
--- NOTE | 2023-01-02 09:57 | P.OP_ITS ---
Operative Report Date of procedure: January 02, 2023 Pre-op diagnosis: Posttraumatic arthritis left subtalar joint Exostosis left cuboid Right plantar fasciitis Post-op diagnosis: Same Procedure done: Left subtalar joint arthrodesis. CPT code 49409 Exostectomy left cuboid. CPT code 89334 Cortisone injection right plantar fascia. CPT code 41321 Implants: [place] 7 mm screw x2, headed [place] V92 2-0 Vicryl, 3-0 Vicryl, 4-0 nylon Surgeon: Bandar Alicea D.P.M. Food Service Sales Representatives: Kayce Estimated blood loss: 5 54 IV fluids: None Urine output: None Complications: None Brief History: Patient examined and evaluated, findings and treatment options discussed with patient at length. Left foot x-ray 3 views taken and reviewed.? X-ray findings correspond to patient's clinical findings which include arthrosis of the left subtalar joint with depression of the posterior facet sequela of calcaneal fracture approximately 14 years ago.? She also has arthrosis of the calcaneocuboid joint more prominent at the lateral aspect with joint space narrowing, enthesophytes and subchondral sclerosis, this also correlates clinically to the area of maximum pain. Patient wishing to discuss surgical options.? She has failed orthotics, supportive shoes, activity modifications, anti-inflammatories.? Recommended left triple arthrodesis.? I reviewed at length with the patient, the risks, potential complications, benefits, alternatives, expectations, and typical outcomes associated with the surgery. The risks and potential complications were explained in detail, including but not limited to infection, wound dehiscence or soft tissue complications, bleeding and hematoma, chronic edema, neuritis or nerve damage producing numbness or chronic pain, CRPS, failure to relieve pain or worsening pain, thick / painful / unsightly scar, limited motion / stiffness, malposition, delayed union, malunion, or nonunion, fracture, reaction to implants, anesthetic complications, venous thromboembolism, and deformity recurrence.? I discussed the notion of no regrets with the patient as it pertains to complications and outcomes. The patient seemed to understand the nature of the proposed care and required convalescence. They asked appropriate questions, answered to their satisfaction. They are aware no guarantees can be made as to a satisfactory outcome and they understand there may be other possible unforeseen complications or outcomes not listed here that will be treated accordingly if they arise. There were no written or implied guarantees given to the patient. They gave informed consent to proceed.? Discussed postoperative immobilization and nonweightbearing for 8 weeks and potentially longer depending on healing of fusion sites. After further discussion discussed isolated left subtalar joint fusion, exostectomy of the left cuboid and right plantar fascia injection, this is her plan A that she would like to proceed with. Procedure: Under mild sedation the patient was brought to the operating room and placed onto the operating table in supine position. Timeout was performed. Anesthesia was then administered by the anesthesia service. Of note a left popliteal block was performed preoperatively per anesthesia. Well-padded pneumatic tourniquet was applied to the left ankle. A cortisone injection was administered to the right plantar fascia utilizing a one-to-one mixture of dexamethasone and Kenalog 40 total of 2 cc were injected via medial approach to the right plantar fascia, prior to injection skin was prepped with alcohol, Band-Aid was applied. The left lower extremity was then scrubbed, prepped and draped utilizing normal aseptic technique. Left foot and ankle were exanguinated with an Esmarch bandage and the left ankle tourniquet was inflated to 250 mmHg. A curvilinear incision was made along the lateral aspect of the foot and ankle, centered over the sinus tarsi region. The subcutaneous tissue and superficial fascia were dissected using electrocautery. Care was taken to preserve the lateral neurovascular structures throughout the procedure. The incision was carried down to the level of the joint capsule. The capsule was then opened using a longitudinal incision, providing access to the subtalar joint. The articular surfaces of the joint were evaluated, and the remaining cartilage was thoroughly debrided using rongeurs and a high-speed gerard. After adequate preparation of the joint surfaces, two parallel drill holes were created using a cannulated drill. The drill holes were aimed from the calcaneus into the talus, ensuring proper alignment and positioning for fusion. Guide wires were then inserted into the drill holes, confirming appropriate placement under fluoroscopic guidance. The wires were used to guide the insertion of 7 mm headed screws most posterior screw oriented perpendicular to the posterior facet and second screw from inferior to superior at the middle facet, which were passed over the wires and into the talus and calcaneus. Fluoroscopy was used to verify the position of the screws and confirm proper alignment of the joint. Once satisfactory positioning was achieved, the screws were tightened to achieve compression across the fusion site. Attention was then directed to the calcaneocuboid articulation where a bony exostosis was appreciated dominantly on the cuboid, this bossing was identified and resected utilizing a rongeur with all rough edges smoothed with a hand rasp The joint capsule and surrounding soft tissues were meticulously repaired using absorbable sutures. Hemostasis was ensured, and the wound was irrigated with sterile saline solution. The incision was closed in layers, with deep sutures used for the subcutaneous tissues and nylon sutures for skin closure. The incision was dressed with Adaptic, sterile 4 x 4's, Kerlix and Gonzalez wrap followed by application of a cam boot. Patient tolerated the procedure and anesthesia well and was transferred to the PACU with vital signs stable and vascular status intact. Following a period of postoperative monitoring patient was discharged home She is to be nonweightbearing and elevate her left foot while resting. Was given at home care instructions and follow-up as well as my cell phone number to contact with any postoperative questions or concerns.
[2023-01-02] MEDS: ceFAZolin 2,000 MG in sodium chloride 0.9% (plus) 50 ML 100 MG IV (10:03)
[2023-01-02] MEDS: dexamethasone 4 mg/mL INJ INJECTION (10:17)
--- NOTE | 2023-01-02 11:30 | PC.NURSE ---
Pt arrived to PACU, resting comfortably, dressing to left foot C/D/I, left toes p/w/d, cap refill < 3 seconds, FOB elevated.
[2023-01-02] MEDS: fentaNYL 50 mcg/mL INJ 2mL IVP ×2 (11:38→11:52)
[2023-01-02] MEDS: HYDROcodone-acetaminophen 10-325 mg Tablet 1 TAB PO (12:58)
--- NOTE | 2023-01-02 14:13 | ANES.PREANE2 ---
Pre-Anesthetic Assessment Height/Weight: Height 1.63 m Weight 67.132 kg Temp Pulse Resp BP Pulse Ox O2 Del Method 97.9 F 70 16 147/84 99 Room Air 01/02/23 13:05 01/02/23 13:05 01/02/23 13:05 01/02/23 13:05 01/02/23 13:05 01/02/23 13:05 Preop Diagnosis: Posttraumatic arthritis left subtalar joint, left gastrocnemius equinus Operation Date: 01/02/23 09:25 Proposed Procedures p Cortisone injection right plantar fascia, Left gastrocnemius recession and Left subtalar joint fusion 67090, 74985 ,76570(Left) - Bandar Alicea DPM s Gastrocnemius Recession(Left) - Bandar Alicea DPM s Cortisone injection right plantar fascia, Left gastrocnemius recession and Left subtalar joint fusion, Cortisone injection right plantar fascia, Left gastrocnemius recession and Left subtalar joint fusion, M72.2, M62.462, M19.172, S92.012S, M19.072(Left) - Bandar Alicea DPM Familial anesthetic complications: none Was Beta Nick taken within 24 hours: N/A Was Clonidine taken within 24 hours: N/A Last intake: Intake Last Liquid Date 01/01/23 Last Liquid Time 23:55 Last Solid Date 01/01/23 Last Solid Time 22:00 Social Tobacco and No alcohol Exam alert, oriented x 3 and regular rate & rhythm Airway Submandibular: within normal limits Cervical ROM: within normal limits Mallampati: Class II Pulmonary Chronic Obstructive Pulmonary Disease Neuropsych Anxiety, Bipolar and Depression Anesthetic Plan ASA status: 2 Anesthesia: General and Regional (specify below) (left pop blk) Medications/Allergies Home Medications Medication Instructions Recorded Confirmed Last Taken Type acetaminophen 500 mg tablet 1,000 mg PO DAILY PRN pain 08/16/19 01/01/23 01/01/23 History (Tylenol Extra Strength) albuterol sulfate 90 mcg/actuation 2 puff inhalation Q6H PRN allergies 01/15/21 01/01/23 01/02/23 07:00 History aerosol inhaler umeclidinium 62.5 mcg-vilanterol 1 inh inhalation DAILY 05/13/21 01/01/23 01/02/23 07:00 History 25 mcg/actuation powdr for inhalation (Anoro Ellipta) omeprazole 20 mg capsule,delayed 20 mg PO DAILY 03/18/22 01/01/23 01/02/23 07:00 History release loratadine 10 mg tablet (Claritin) 10 mg PO DAILY 11/19/22 01/01/23 01/02/23 07:00 History bupropion HCl 75 mg tablet 75 mg PO BID #60 tabs 12/16/22 01/01/23 01/02/23 07:00 Rx gabapentin 300 mg capsule 300 mg PO DIRECTED #120 caps 12/16/22 01/02/23 01/02/23 07:00 Rx propranolol 10 mg tablet 10 mg PO DAILY PRN anxiety #30 tabs 12/16/22 01/02/23 01/02/23 07:00 Rx quetiapine 150 mg tablet 150 mg PO .9 pm #30 tabs 12/16/22 01/01/23 01/01/23 20:00 Rx hydrocodone 10 mg-acetaminophen 1 tab PO Q6H PRN pain 7 days #28 01/02/23 Unknown Rx 325 mg tablet tabs Allergies Allergy/AdvReac Type Severity Reaction Status Date / Time No Known Allergies Allergy Verified 01/01/23 13:23 [facility] Anesthesia Medical History (Updated 12/12/22 @ 17:04 by Bandar Alicea DPM) Borderline personality disorder COPD (chronic obstructive pulmonary disease) Generalized anxiety disorder Major depressive disorder, recurrent severe without psychotic features Nicotine dependence, other tobacco product, uncomplicated electronic cigarette/vaping nicotine, and nicotine pouches (8 mg of nicotine) Psychiatric care Family History Brother Stroke Father CAD (coronary artery disease) Grandmother Cancer Lung disease Social History Smoking and tobacco status: former smoker (Quit, using nicotine pouches.) Quit status (tobacco): has quit using tobacco Year quit tobacco: November 2021 Former quit date comment: 1 ppd X 35 years Second hand smoke exposure: Yes Smoking risk assessment/counseling performed?: Yes Alcohol intake: never Substance/Drug Use: never Adopted: No Caregiver/support person: No Lives independently: Yes Household members: none Housing: Apartment Marital status: Marital status details: since 2005 Number of children: 2 Number of grandchildren: 2 Highest education level completed: Some College, No Degree service: No Current occupational status: disabled Current occupational exposures/hazards: No Pets and animals: Yes (sugar glyder) Pets & animals: dog(s) Leisure activites: reading and other Leisure activities details: watch TV, dog sitting Sexually active: No Do you think of yourself as: Straight/Heterosexual Current gender identity: Female Jodee/Scientology: Jehovah'S Witness Special jodee needs: No Agree to transfusion: Yes Financial difficulty paying for basics: Not Very Hard Female Reproductive History Para: 2 Spontaneous abortions: No Data Anesthesia Cardiac Studies: No Data to Display Anesthesia Procedures Nerve Block Nerve Block 1: Main Anesthesia: general anesthesia Time Out Performed: Yes Consent: requested by attending/covering physician, from patient, risks and benefits reviewed and patient agrees to proceed Nerve block location: popliteal (left) Anesthesia monitors applied: pulse oximetry, EKG, BP cuff and oxygen Nerve block position: supine Anesthetic Used: ropivicaine 0.5% Amount of anesthesia used (mL): 30 Ultrasound used to: recognize landmarks Nerve Stimulator Used?: No Interscalene/Femoral BLK: 4 stimuplex 21 g needle used for position and inplane approach Injection: neg aspiration of heme Patient Tolerated Procedure: well Complications: none
--- NOTE | 2023-01-02 14:27 | ANE.PACU2 ---
Inpatient post-anesthesia follow up: Airway intact: Yes Vital signs: Temperature 97.9 F Pulse Rate 70 Respiratory Rate 16 Blood Pressure 147/84 Pulse Oximetry 99 Oxygen Delivery Me thod Room Air Oxygen Flow Rate Fraction of Inspir ed Oxygen Hydration adequate: Yes Nausea and vomiting: No Pain level: 3 Mental status: Baseline
== END 2023-01-02 13:25 | disposition home or self-care (01) ==
PROVIDERS: PCP Family Medicine; Visit Provider Podiatrist Foot & Ankle Surgery
PROC: (CPT 96372; 2023-01-02 09:15)
PROC: (CPT 28725; 2023-01-02 09:15)
DX: M19.172 Post-traumatic osteoarthritis, left ankle and foot (principal); M89.8X7 Other specified disorders of bone, ankle and foot; M72.2 Plantar fascial fibromatosis; F17.290 Nicotine dependence, other tobacco product, uncomplicated; J44.9 Chronic obstructive pulmonary disease, unspecified; F32.A Depression, unspecified; F41.1 Generalized anxiety disorder
CPT/HCPCS: 20550; 28122; 28725; 73650; 76000; C1713; C1762; J0690; J1100; J2405; J2704; J2795; J3010; J3490; J7030

== ENCOUNTER → 2023-01-08 12:42 | Outpatient (BNVA) | payer MEDICARE, MEDICAID, SELFPAY | PROVIDERS: PCP Family Medicine; Visit Provider Podiatrist Foot & Ankle Surgery | DX: Z98.890 Other specified postprocedural states (principal); M19.172 Post-traumatic osteoarthritis, left ankle and foot; M19.072 Primary osteoarthritis, left ankle and foot; S92.012S Displaced fracture of body of left calcaneus, sequela; M24.572 Contracture, left ankle; M72.2 Plantar fascial fibromatosis; X58.XXXS Exposure to other specified factors, sequela | CPT/HCPCS: 99024 ==

== ENCOUNTER → 2023-01-15 12:48 | Outpatient (BNVA) | payer MEDICARE, MEDICAID, SELFPAY | PROVIDERS: PCP Family Medicine; Visit Provider Podiatrist Foot & Ankle Surgery | DX: Z98.890 Other specified postprocedural states (principal); M19.172 Post-traumatic osteoarthritis, left ankle and foot; M19.072 Primary osteoarthritis, left ankle and foot; S92.012S Displaced fracture of body of left calcaneus, sequela; X58.XXXS Exposure to other specified factors, sequela; M24.572 Contracture, left ankle; M72.2 Plantar fascial fibromatosis | CPT/HCPCS: 73610; 99024 ==

== ENCOUNTER → 2023-01-20 10:43 | Outpatient (BNVA) | payer MEDICARE, MEDICAID, SELFPAY | PROVIDERS: PCP Family Medicine; Visit Provider Physician Assistant | DX: M47.816 Spondylosis without myelopathy or radiculopathy, lumbar region (principal); M54.9 Dorsalgia, unspecified | CPT/HCPCS: 99213 ==

== ENCOUNTER → 2023-01-29 13:14 | Outpatient (BNVA) | payer MEDICARE, MEDICAID, SELFPAY | PROVIDERS: PCP Family Medicine; Visit Provider Podiatrist Foot & Ankle Surgery | DX: Z98.890 Other specified postprocedural states (principal); M19.172 Post-traumatic osteoarthritis, left ankle and foot; M19.072 Primary osteoarthritis, left ankle and foot; S92.012S Displaced fracture of body of left calcaneus, sequela; X58.XXXS Exposure to other specified factors, sequela; M24.572 Contracture, left ankle; M72.2 Plantar fascial fibromatosis | CPT/HCPCS: 73630; 99024 ==

== ENCOUNTER 2023-02-09 10:35 | Outpatient (CLI) | payer MEDICARE, MEDICAID, SELFPAY ==
--- NOTE | 2023-02-09 11:00 | MR_ITS ---
WS: [id number] MRI LUMBAR SPINE NONCONTRAST HISTORY: Lumbar spine facet arthritis COMPARISON: 09/15/2018 TECHNIQUE: Sagittal and axial multisequence imaging is submitted. Mild increase in thoracic kyphosis. There are small thoracic disc protrusion contacting the ventral t hecal sac with no high-grade stenosis. Small disc protrusions at T2-3, T3-4, T4-5, T7-8. Normal lumbar alignment with no compression fractures or marrow edema. Mild disc desiccation and narrowing at L5-S1. No fractures or marrow edema. Conus terminates normally at L1-2 disc level. L1-L2: Normal. L2-L3: Normal. L3-L4: Mild annular disc bulging. Mild effacement of the ventral thecal sac. Ligamentum flavum and fa cet arthritis similar to the prior study. There is mild effacement and encroachment into the subartic ular recesses. There is mild disc contact and narrowing and encroachment upon the traversing L4 nerve roots. Mild bilateral foraminal stenosis. L4-L5: Diffuse moderate annular disc bulging with effacement of the ventral thecal sac. Progression o f effacement and central and subarticular recess encroachment. Marked ligamentum flavum hypertrophy a nd facet arthritis. Small amount of fluid in the facet joints. Moderate central, bilateral subarticul ar recess and foraminal stenosis. Slightly greater stenosis and LEFT foramen. There is significant co ntact on the traversing L5 nerve roots. L5-S1: Diffuse annular disc bulging with mild ligamentum flavum and facet arthritis. Very small LEFT paracentral disc protrusion contacting but not displacing the LEFT S1 nerve root as also seen on the prior study. Moderate bilateral foraminal stenosis. Paravertebral soft tissues are negative. MR/MR lumbar spine wo con* [id number] IMPRESSION: 1. Moderate progression of degenerative disc and facet arthritis at L4-5. 2. L4-5: Moderate central, bilateral subarticular recess and foraminal stenosi s with significant contact on the traversing L5 nerve roots. Progression of solange nosis and degenerative changes since 2019. 3. Small LEFT paracentral disc protrusion at L5-S1 contacting but not displaci ng the LEFT S1 nerve root. 4. Moderate bilateral foraminal stenosis at L5-S1. 5. Mild central, bilateral subarticular recess and foraminal stenosis at L3-4.
== END 2023-02-09 10:36 | disposition home or self-care (01) ==
LOC: RAD 10:36
PROVIDERS: PCP Family Medicine; Visit Provider Physician Assistant
DX: M47.816 Spondylosis without myelopathy or radiculopathy, lumbar region (principal); M48.061 Spinal stenosis, lumbar region without neurogenic claudication; M51.27 Other intervertebral disc displacement, lumbosacral region
CPT/HCPCS: 72148

== ENCOUNTER → 2023-02-12 13:26 | Outpatient (BNVA) | payer MEDICARE, MEDICAID, SELFPAY | PROVIDERS: PCP Family Medicine; Visit Provider Podiatrist Foot & Ankle Surgery | DX: Z98.890 Other specified postprocedural states (principal); M19.172 Post-traumatic osteoarthritis, left ankle and foot; M19.072 Primary osteoarthritis, left ankle and foot; S92.012S Displaced fracture of body of left calcaneus, sequela; X58.XXXS Exposure to other specified factors, sequela; M24.572 Contracture, left ankle; M72.2 Plantar fascial fibromatosis | CPT/HCPCS: 73620; 99024 ==

== ENCOUNTER → 2023-02-19 13:28 | Outpatient (BNVA) | payer MEDICARE, MEDICAID, OTHER, SELFPAY | PROVIDERS: PCP Family Medicine; Visit Provider Orthopaedic Surgery | DX: M48.062 Spinal stenosis, lumbar region with neurogenic claudication (principal) | CPT/HCPCS: 99214 ==

== ENCOUNTER → 2023-02-26 12:54 | Outpatient (BNVA) | payer MEDICARE, MEDICAID, OTHER, SELFPAY | PROVIDERS: PCP Family Medicine; Visit Provider Podiatrist Foot & Ankle Surgery | DX: Z98.890 Other specified postprocedural states (principal); M19.172 Post-traumatic osteoarthritis, left ankle and foot; S92.012S Displaced fracture of body of left calcaneus, sequela; X58.XXXS Exposure to other specified factors, sequela; M24.572 Contracture, left ankle; M72.2 Plantar fascial fibromatosis; M19.072 Primary osteoarthritis, left ankle and foot | CPT/HCPCS: 73630; 99024 ==

== ENCOUNTER → 2023-04-02 11:09 | Outpatient (BNVA) | payer MEDICARE, MEDICAID, OTHER, SELFPAY | PROVIDERS: PCP Family Medicine; Visit Provider Podiatrist Foot & Ankle Surgery | DX: Z98.890 Other specified postprocedural states (principal) | CPT/HCPCS: 73630; 99024 ==

== ENCOUNTER → 2023-08-11 12:08 | Outpatient (BNVA) | payer MEDICARE, MEDICAID, OTHER, SELFPAY | PROVIDERS: PCP Family Medicine; Visit Provider Nurse Practitioner Psychiatric/Mental Health | DX: Z79.899 Other long term (current) drug therapy (principal); F33.2 Major depressive disorder, recurrent severe without psychotic features; F60.3 Borderline personality disorder; F41.1 Generalized anxiety disorder; F17.290 Nicotine dependence, other tobacco product, uncomplicated | CPT/HCPCS: 80053; 80061; 83036 ==

== ENCOUNTER → 2023-08-17 08:58 | Outpatient (BNVA) | payer MEDICARE, MEDICAID, OTHER, SELFPAY | PROVIDERS: PCP Family Medicine; Referring Provider Orthopaedic Surgery; Visit Provider Anesthesiology Pain Medicine | DX: M48.062 Spinal stenosis, lumbar region with neurogenic claudication (principal); M47.816 Spondylosis without myelopathy or radiculopathy, lumbar region; M51.16 Intervertebral disc disorders with radiculopathy, lumbar region | CPT/HCPCS: 99204 ==

== ENCOUNTER 2023-08-19 09:13 | Outpatient (CLI) | payer MEDICARE, MEDICAID, SELFPAY ==
--- NOTE | 2023-08-19 09:45 | CT_ITS ---
WS: [id number] LDCT LUNG CANCER SCREENING TECHNIQUE: Noncontrast CT of the chest with coronal and sagittal reformatted images. CLINICAL INFORMATION: Cancer Screen COMPARISON: CT 08/18/2022 DLP: 53.52 mGy.cm DIvol: Mean CTDIvol: 1.00 (mGy) All CT scans at [facility] use at least one of these dose optimization techniques: automat ed exposure control; mA and/or kV adjustment per patient size (includes targeted exams where dose is matched to clinical indication); or iterative reconstruction. FINDINGS: Mild centrilobular emphysematous changes stable compared to previous. Slight fibrosis in the lung ap ices. No new suspicious pulmonary parenchymal abnormalities. Aortic calcification. Normal caliber thoracic aorta. No mediastinal or hilar lymphadenopathy. Small L EFT adrenal adenoma.RIGHT Adrenal gland is normal. Normal GE junction. Stable hepatic cyst. Mild spon dylitic changes thoracic spine. IMPRESSION: CT/CT lung screening [id number] LUNG-RADS: 1-Negative FOLLOW UP: 12 Month: Continue annual screening with LDCT
== END 2023-08-19 09:14 | disposition home or self-care (01) ==
LOC: RAD 09:13
PROVIDERS: PCP Family Medicine; Visit Provider Internal Medicine Pulmonary Disease
DX: Z12.2 Encounter for screening for malignant neoplasm of respiratory organs (principal); Z87.891 Personal history of nicotine dependence
CPT/HCPCS: 71271

== ENCOUNTER 2023-08-20 09:55 | Outpatient (CLI) | payer MEDICARE, MEDICAID, SELFPAY ==
--- NOTE | 2023-08-20 10:00 | MM_ITS ---
WS: [id number] SCREENING DIGITAL BREAST TOMOSYNTHESIS MAMMOGRAM WITH CAD HISTORY: SCREENING COMPARISON: 07/23/2022 and 05/27/2019 Bilateral CC and MLO with tomosynthesis and synthetic mammography submitted. Computer aided detection analyzed. Breast composition: There are scattered areas of fibroglandular density. New asymmetry in the posteri or LEFT breast. There is a single 5 mm asymmetry noted just medial to the nipple line on the LEFT CC projection. On the LEFT MLO projection there is a focal asymmetry just above or at the nipple line in the posterior breast. RIGHT breast is negative. IMPRESSION: MM/[place] [id number] BI-RADS: 0-Incomplete: Need additional imaging evaluation FOLLOW UP: Need Additional Imaging LEFT breast: Spot compression views (CC and MLO). True ML. Ultrasound to follow if abnormality persists.
== END 2023-08-20 09:56 | disposition home or self-care (01) ==
LOC: MOBLMAM 09:59
PROVIDERS: PCP Family Medicine; Visit Provider Family Medicine
DX: Z12.31 Encounter for screening mammogram for malignant neoplasm of breast (principal); N64.89 Other specified disorders of breast
CPT/HCPCS: 77063; 77067

== ENCOUNTER 2023-09-22 08:36 | Outpatient (CLI) | payer MEDICARE, MEDICAID, SELFPAY ==
--- NOTE | 2023-09-22 08:43 | MM_ITS ---
WS: [id number] ADDITIONAL VIEWS LEFT MAMMOGRAM with tomosynthesis. LEFT BREAST ULTRASOUND HISTORY: ABNORMAL MAMMOGRAM COMPARISON: 08/20/2023, 07/23/2022 and 05/27/2019 LEFT MAMMOGRAM: Spot compression views and true ML with tomosynthesis and sympathetic mammography. The 5 mm asymmetry noted on the medial LEFT breast on the CC projection only resolves with additional imaging. There is mild asymmetric soft tissue in the upper outer quadrant but no mass identified aft er additional imaging. Ultrasound will be performed of the LEFT upper outer quadrant to be sure there is no underlying obscured mass. LEFT BREAST ULTRASOUND 2-D and color Doppler imaging submitted. Ultrasound is directed to the upper outer quadrant of the LEFT breast. There is no mass or shadowing. No distortion of tissue. IMPRESSION: MM/[place] [id number] BI-RADS: 2-Benign FOLLOW UP: 1 Year Follow-up No persistent abnormality in the LEFT breast on the follow-up imaging evaluatio n.
== END 2023-09-22 08:37 | disposition home or self-care (01) ==
LOC: RAD 08:36
PROVIDERS: PCP Family Medicine; Visit Provider Family Medicine
DX: R92.2 Inconclusive mammogram (principal); R92.8 Other abnormal and inconclusive findings on diagnostic imaging of breast; N64.89 Other specified disorders of breast
CPT/HCPCS: 76642; 77061; G0279

== ENCOUNTER → 2023-10-01 14:24 | Outpatient (BNVA) | payer MEDICARE, MEDICAID, SELFPAY | PROVIDERS: PCP Family Medicine; Visit Provider Anesthesiology Pain Medicine | DX: M48.062 Spinal stenosis, lumbar region with neurogenic claudication; M51.16 Intervertebral disc disorders with radiculopathy, lumbar region | CPT/HCPCS: 64483; 64484; J1100; J3490 ==

== ENCOUNTER → 2023-10-15 10:44 | Outpatient (BNVA) | payer MEDICARE, MEDICAID, SELFPAY | PROVIDERS: PCP Family Medicine; Visit Provider Anesthesiology Pain Medicine | DX: M48.062 Spinal stenosis, lumbar region with neurogenic claudication (principal); M47.816 Spondylosis without myelopathy or radiculopathy, lumbar region; M51.16 Intervertebral disc disorders with radiculopathy, lumbar region | CPT/HCPCS: 99214 ==

== ENCOUNTER → 2023-11-03 13:08 | Outpatient (BNVA) | payer MEDICARE, MEDICAID, SELFPAY | PROVIDERS: PCP Family Medicine; Visit Provider Anesthesiology Pain Medicine | DX: M79.18 Myalgia, other site (principal); M48.062 Spinal stenosis, lumbar region with neurogenic claudication; M47.816 Spondylosis without myelopathy or radiculopathy, lumbar region; M51.16 Intervertebral disc disorders with radiculopathy, lumbar region | CPT/HCPCS: 20553; 99214; J1030; J3490 ==

== ENCOUNTER → 2023-12-21 07:50 | Outpatient (BNVA) | payer MEDICARE, MEDICAID, SELFPAY | PROVIDERS: PCP Family Medicine; Visit Provider Podiatrist Foot & Ankle Surgery | DX: M76.72 Peroneal tendinitis, left leg | CPT/HCPCS: 73630; 99213 ==

== ENCOUNTER 2024-01-22 12:38 | Outpatient (CLI) | payer MEDICARE, MEDICAID, SELFPAY ==
--- NOTE | 2024-01-22 12:44 | XR_ITS ---
WS: [id number] SCREENING DEXA SCAN [employer] CLINICAL INFORMATION: POSTMENOPAUSAL COMPARISON: None. FINDINGS: The L1-L4 bone mineral density measures 1.204 g/cm2. This corresponds to a T score score of 0.2 and Z score of 0.5. Left femoral neck bone mineral density measures 0.915 g/cm2. This corresponds to a T score of -0.7 an d Z score of -0.4. Right femoral neck bone mineral density measures 0.950 g/cm2. This corresponds to a T score -0.5of an d Z score of -0.2. Mean femoral neck bone mineral density measures 0.933 g/cm2. This corresponds to a T score of -0.6 an d Z score of -0.3. XR/XR DEXA axial skeleton* [id number] IMPRESSION: Normal bone mineralization. Patient's FRAX calculated 10 year probability for major osteoporotic fracture i s 11.3% and osteoporotic hip fracture is 0.9%.
== END 2024-01-22 12:39 | disposition home or self-care (01) ==
LOC: RAD 12:40
PROVIDERS: PCP Family Medicine; Visit Provider Physician Assistant
DX: Z78.0 Asymptomatic menopausal state (principal)
CPT/HCPCS: 77080

== ENCOUNTER → 2024-01-25 09:43 | Outpatient (BNVA) | payer MEDICARE, MEDICAID, SELFPAY | PROVIDERS: PCP Family Medicine; Visit Provider Podiatrist Foot & Ankle Surgery | DX: M76.72 Peroneal tendinitis, left leg | CPT/HCPCS: 99213 ==

== ENCOUNTER → 2024-02-18 08:46 | Outpatient (BNVA) | payer MEDICARE, MEDICAID, OTHER, SELFPAY | PROVIDERS: PCP Family Medicine; Visit Provider Orthopaedic Surgery | DX: M48.062 Spinal stenosis, lumbar region with neurogenic claudication (principal); Z01.818 Encounter for other preprocedural examination | CPT/HCPCS: 72110 ==

== ENCOUNTER 2024-02-18 09:32 | Outpatient (CLI) | payer MEDICARE, MEDICAID, OTHER, SELFPAY ==
[2024-02-18 10:07] LABS: Add Urine Microscopic? NO; Charge for UA Resulting for Rev
[2024-02-18 10:15] LABS: Bilirubin Urine Neg (Negative); Blood Urine Neg (Negative); Glucose Urine UA Norm (Normal); Ketones Urine Negative (Negative); Leukocyte Esterase Urine Negative (Negative); Nitrate Urine Negative (Negative); Protein Urine Neg (Negative); Urine Appearance Clear (CLEAR); Urine Color Yellow (Yellow); Urobilinogen Urine Norm (Negative); pH Urine 6 (5-7)
[2024-02-18 10:17] LABS: Basophils # 0.1 10^3/uL (0.0-0.1); Basophils % 1.5 %; Eosinophils # 0.3 10^3/uL (0.0-0.8); Eosinophils % 3.4 %; Hematocrit 32.8 % (36-47); Lymphocytes # 2.6 10^3/uL (0.8-4.8); Lymphocytes % 34.6 %; Mean Corpuscular HGB Conc 28.7 g/dL (30-55); Mean Corpuscular Hemoglobin 22.4 pg (27-33); Mean Corpuscular Volume 78.3 fl (85-98); Mean Platelet Volume 9.2 fL (7.4-10.4); Monocytes # 0.8 10^3/uL (0.2-0.9); Monocytes % 11.1 %; Neutrophils # 3.63 10^3/uL (1.8-7.7); Neutrophils % 49.1 %; Nucleated Red Blood Cells % 0 %; Platelet Count 397 10^3/cmm (157-399); Red Blood Count 4.19 10^6/uL (3.85-5.65); Red Cell Distribution Width 15.9 % (12.1-15.1); White Blood Count 7.39 10^3/uL (3.29-11.43)
[2024-02-18 10:29] LABS: Alanine Aminotransferase 11 U/L (0-33); Albumin Level 4.4 g/dL (3.5-5.2); Alkaline Phosphatase 86 U/L (35-105); Anion Gap 14.6 (5-19); Aspartate Amino Transferase 20 U/L (0-32); Blood Urea Nitrogen 14 mg/dL (6-20); Calcium 9.7 mg/dL (8.5-10.5); Carbon Dioxide 29 mmol/L (22-29); Chloride 99 mmol/L (98-107); Globulin 2.8 g/dL (1.3-4.6); Glomerular Filtration Rate 74.5 mL/min (90-130); Glucose 91 mg/dL (65-115); Osmolality Calculated 286 mOsm/kg (285-295); Potassium 4.6 mmol/L (3.5-5.1); Sodium 138 mmol/L (136-145); Total Bilirubin 0.2 mg/dL (0.15-1.2); Total Protein 7.2 g/dL (6.6-8.7)
== END 2024-02-18 09:33 | disposition home or self-care (01) ==
LOC: SPT 09:33
PROVIDERS: Orthopaedic Surgery; PCP Family Medicine; Visit Provider Podiatrist Foot & Ankle Surgery
DX: Z46.89 Encounter for fitting and adjustment of other specified devices (principal); M76.70 Peroneal tendinitis, unspecified leg; M48.062 Spinal stenosis, lumbar region with neurogenic claudication
CPT/HCPCS: 80053; 81003; 85025; 97760; 99214; L3030

== ENCOUNTER → 2024-03-23 09:49 | Outpatient (BNVA) | payer MEDICARE, MEDICAID, SELFPAY | PROVIDERS: PCP Family Medicine; Visit Provider Family Medicine | DX: Z01.818 Encounter for other preprocedural examination (principal) | CPT/HCPCS: 80053; 81003; 85025 ==

== ENCOUNTER 2024-06-10 10:16 | Outpatient (CLI) | payer MEDICARE, MEDICAID, SELFPAY ==
[2024-06-10 10:34] LABS: Basophils # 0.1 10^3/uL (0.0-0.1); Basophils % 1.2 %; Eosinophils # 0.2 10^3/uL (0.0-0.8); Eosinophils % 2.8 %; Hematocrit 40.1 % (36-47); Lymphocytes # 1.9 10^3/uL (0.8-4.8); Lymphocytes % 30.7 %; Mean Corpuscular HGB Conc 32.2 g/dL (30-55); Mean Corpuscular Hemoglobin 27.4 pg (27-33); Mean Corpuscular Volume 85.3 fl (85-98); Mean Platelet Volume 9.5 fL (7.4-10.4); Monocytes # 0.6 10^3/uL (0.2-0.9); Monocytes % 10.6 %; Neutrophils % 54.4 %; Nucleated Red Blood Cells % 0 %; Platelet Count 436 10^3/cmm (157-399); Red Cell Distribution Width 15.9 % (12.1-15.1); White Blood Count 6.06 10^3/uL (3.29-11.43)
[2024-06-10 10:49] LABS: Alanine Aminotransferase 15 U/L (0-33); Albumin Level 4.4 g/dL (3.5-5.2); Alkaline Phosphatase 81 U/L (35-105); Anion Gap 15.6 (5-19); Aspartate Amino Transferase 30 U/L (0-32); Blood Urea Nitrogen 8 mg/dL (6-20); Calcium 9.1 mg/dL (8.5-10.5); Carbon Dioxide 26 mmol/L (22-29); Chloride 96 mmol/L (98-107); Globulin 2.7 g/dL (1.3-4.6); Glomerular Filtration Rate 74.5 mL/min (90-130); Glucose 107 mg/dL (65-115); Osmolality Calculated 275 mOsm/kg (285-295); Potassium 4.6 mmol/L (3.5-5.1); Sodium 133 mmol/L (136-145); Total Bilirubin 0.2 mg/dL (0.15-1.2); Total Protein 7.1 g/dL (6.6-8.7)
[2024-06-10 12:30] LABS: Bilirubin Urine Negative (Negative); Blood Urine Negative (Negative); Glucose Urine UA Negative (Normal); Ketones Urine Negative (Negative); Leukocyte Esterase Urine Negative (Negative); Nitrate Urine Negative (Negative); Protein Urine Negative (Negative); Specific Gravity, Urine 1.007 (1.005-1.030); Urine Appearance Clear (CLEAR); Urine Color Yellow (Yellow); Urobilinogen Urine 0.2 mg/dL (Negative); pH Urine 5.5 (5-7)
[2024-06-10 12:32] LABS: Add Urine Microscopic? YES; Bacteria Urine None Seen /hpf; Hyaline Casts Urine 0-4 /lpf; RBC Urine 0-2 /hpf (0-2); Squamous Epithelial Cell Urine 0-5 /hpf (0-5); WBC Urine 0-5 /hpf (0-5)
== END 2024-06-10 10:17 | disposition home or self-care (01) ==
PROVIDERS: PCP Family Medicine; Visit Provider Orthopaedic Surgery
DX: Z01.818 Encounter for other preprocedural examination (principal)
CPT/HCPCS: 80053; 81001; 85025

== ENCOUNTER → 2024-06-20 07:58 | Day surgery (SDC) | payer MEDICARE, MEDICAID, SELFPAY ==
[2024-06-20] VITALS (10 sets, daily range): BP systolic 110–158; BP diastolic 82–98; PULSE 57–80; RESP 16–18; TEMP 36.1–36.2; O2SAT 97–100; BMI 30.7
[2024-06-20] MEDS: sodium chloride 0.9% 1,000 ML 30 ML IV (08:27)
--- NOTE | 2024-06-20 08:36 | W.PM.OPSFHP ---
Same Day Surgery H&P Indication for Procedure/HPI DATE OF PROCEDURE: June 20, 2024 CHIEF COMPLAINT/INDICATIONFOR SURGICAL PROCEDURE: Back and leg pain on the left PREOP DIAGNOSIS: Lumbar stenosis with neurogenic claudication PLANNED PROCEDURE: Operation Date: 06/20/24 09:45 Proposed Procedures p Lumbar Spine Decompression Lumbar Decompression(Not Applicable) - Chester Dunbar DO Medications/Allergies* Home Medications Medication Instructions Recorded Confirmed Type acetaminophen 500 mg tablet 1,000 mg PO DAILY PRN pain 08/16/19 06/16/24 History (Tylenol Extra Strength) albuterol sulfate 90 mcg/actuation 2 puff inhalation Q6H PRN allergies 01/15/21 06/20/24 History aerosol inhaler loratadine 10 mg tablet (Claritin) 10 mg PO DAILY 11/19/22 06/16/24 History multivitamin 1 tab PO DAILY 03/23/24 06/16/24 History oxybutynin chloride 5 mg 5 mg PO DAILY 03/23/24 06/16/24 History tablet,extended release 24 hr pantoprazole 40 mg tablet,delayed 40 mg PO DAILY 04/07/24 06/16/24 History release ferrous gluconate 325 mg (36 mg 325 mg PO DAILY 04/19/24 06/16/24 History iron) tablet umeclidinium 62.5 mcg-vilanterol 1 inh inhalation DAILY 06/16/24 06/16/24 History 25 mcg/actuation powdr for inhalation (Anoro Ellipta) Allergies/Adverse Reactions Allergy/AdvReac Type Severity Reaction Status Date / Time No Known Allergies Allergy Verified 06/20/24 08:14 Current Medications: Generic Name Dose Route Start Last Admin Trade Name Freq PRN Reason Stop Dose Admin Sodium Chloride 1,000 mls @ 30 mls/hr 06/20/24 08:15 06/20/24 08:27 Sodium Chloride 0.9% IV 06/21/24 08:14 30 mls/hr .Q24H BUSTER Administration Pertinent History/Comorbid Conditions* Medical History (Updated 10/13/23 @ 11:58 by Sher[facility] Ol[facility]a [facility]) Nicotine dependence, other tobacco product, uncomplicated nicotine pouches (4 mg of nicotine) COPD (chronic obstructive pulmonary disease) Psychiatric care Borderline personality disorder Generalized anxiety disorder Major depressive disorder, recurrent severe without psychotic features Family History (Updated 01/24/20 @ 11:16 by Desiree Hathaway LPN) CAD (coronary artery disease) Father Lung disease Grandmother Cancer Grandmother Stroke Brother Social History Smoking and tobacco/nicotine status: former use of tobacco/nicotine Quit status (tobacco/nicotine): has quit using Year quit tobacco: November 2021 Former quit date comment: 1 ppd X 35 years Second hand smoke exposure: Yes Alcohol intake: never Substance/Drug Use: never Adopted: No Caregiver/support person: No Lives independently: Yes Household members: none Housing: Apartment Marital status: Marital status details: since 2005 Number of children: 2 Number of grandchildren: 2 Highest education level completed: Some College, No Degree service: No Current occupational status: disabled Current occupational exposures/hazards: No Pets and animals: Yes (sugar glyder) Pets & animals: dog(s) Leisure activites: reading and other Leisure activities details: watch TV, dog sitting Sexually active: No Do you think of yourself as: Straight/Heterosexual Current gender identity: Female Jodee/Episcopalian: Voodoo Special jodee needs: No Agree to transfusion: Yes Pertinent Exam Findings alert, oriented x 3 and procedure specific exam findings Recommendations Surgery/Procedure today Coding Level of Care Code Acute Code for Chg Fwd
--- NOTE | 2024-06-20 09:05 | P.ANESASSM_ITS ---
Pre-Anesthetic Assessment Height/Weight: Height 5 ft 4 in Weight 179 lb Temp Pulse Resp BP Pulse Ox O2 Del Method 97.2 F L 75 18 151/86 98 Room Air 06/20/24 08:19 06/20/24 08:19 06/20/24 08:19 06/20/24 08:19 06/20/24 08:19 06/20/24 08:24 Preop Diagnosis: Lumbar stenosis with neurogenic claudication Operation Date: 06/20/24 09:45 Proposed Procedures p Lumbar Spine Decompression Lumbar Decompression(Not Applicable) - Chester Dunbar, DO Was Beta Nick taken within 24 hours: N/A Was Clonidine taken within 24 hours: N/A Last intake: Intake Last Liquid Date 06/19/24 Last Liquid Time 22:00 Last Solid Date 06/19/24 Last Solid Time 22:00 Social No alcohol and No tobacco Exam alert, oriented x 3, clear to auscultation bilaterally and regular rate & rhythm Airway Submandibular: within normal limits Cervical ROM: within normal limits Mallampati: Class III Dentition: full Comments: Comments: lesion on tongue Anesthetic Plan ASA status: 3 Anesthesia: General Other: No prior issues with anesthesia NPO since yesterday COPD, emphysema. Controlled on inhalers GERD on Protonix Hypertension, not on any medication. Preop BP 151/86 Labs 06/10/2024 reviewed and acceptable for procedure. Medications/Allergies Home Medications Medication Instructions Recorded Confirmed Last Taken Type acetaminophen 500 mg tablet 1,000 mg PO DAILY PRN pain 08/16/19 06/16/24 06/19/24 History (Tylenol Extra Strength) albuterol sulfate 90 mcg/actuation 2 puff inhalation Q6H PRN allergies 01/15/21 06/20/24 06/19/24 History aerosol inhaler loratadine 10 mg tablet (Claritin) 10 mg PO DAILY 11/19/22 06/16/24 06/20/24 06:45 History bupropion HCl 75 mg tablet 75 mg PO BID #180 tabs 12/15/23 06/16/24 06/20/24 06:45 Rx propranolol 10 mg tablet 10 mg PO .morning anxiety #90 tabs 12/15/23 06/16/24 06/20/24 06:45 Rx quetiapine 50 mg tablet (Seroquel) 150 mg (3 x 50 mg) PO .9 pm #270 12/15/23 06/16/24 06/19/24 Rx tabs custom inserts #1 ea 01/25/24 04/19/24 Unknown Rx multivitamin 1 tab PO DAILY 03/23/24 06/16/24 06/20/24 06:45 History oxybutynin chloride 5 mg 5 mg PO DAILY 03/23/24 06/16/24 06/19/24 History tablet,extended release 24 hr pantoprazole 40 mg tablet,delayed 40 mg PO DAILY 04/07/24 06/16/24 06/20/24 06:45 History release ferrous gluconate 325 mg (36 mg 325 mg PO DAILY 04/19/24 06/16/24 06/20/24 06:45 History iron) tablet gabapentin 300 mg capsule 300 mg PO DIRECTED #120 caps 04/19/24 06/16/24 1 08/20/23 06:45 Rx umeclidinium 62.5 mcg-vilanterol 1 inh inhalation DAILY 06/16/24 06/16/24 06/19/24 History 25 mcg/actuation powdr for inhalation (Anoro Ellipta) Allergies Allergy/AdvReac Type Severity Reaction Status Date / Time No Known Allergies Allergy Verified 06/20/24 08:14 Current Medications Generic Name Dose Route Start Last Admin Trade Name Freq PRN Reason Stop Dose Admin Sodium Chloride 1,000 mls @ 30 mls/hr 06/20/24 08:15 06/20/24 08:27 Sodium Chloride 0.9% IV 06/21/24 08:14 30 mls/hr .Q24H BUSTER Administration PFSH Anesthesia Medical History Nicotine dependence, other tobacco product, uncomplicated nicotine pouches (4 mg of nicotine) COPD (chronic obstructive pulmonary disease) Psychiatric care Borderline personality disorder Generalized anxiety disorder Major depressive disorder, recurrent severe without psychotic features Family History Brother Stroke Father CAD (coronary artery disease) Grandmother Cancer Lung disease Social History Smoking and tobacco/nicotine status: former use of tobacco/nicotine Quit status (tobacco/nicotine): has quit using Year quit tobacco: November 2021 Former quit date comment: 1 ppd X 35 years Second hand smoke exposure: Yes Alcohol intake: never Substance/Drug Use: never Adopted: No Caregiver/support person: No Lives independently: Yes Household members: none Housing: Apartment Marital status: Marital status details: since 2005 Number of children: 2 Number of grandchildren: 2 Highest education level completed: Some College, No Degree service: No Current occupational status: disabled Current occupational exposures/hazards: No Pets and animals: Yes (sugar glyder) Pets & animals: dog(s) Leisure activites: reading and other Leisure activities details: watch TV, dog sitting Sexually active: No Do you think of yourself as: Straight/Heterosexual Current gender identity: Female Jodee/Presybeterian: Faith Special jodee needs: No Agree to transfusion: Yes Female Reproductive History Para: 2 Spontaneous abortions: No Data Anesthesia Cardiac Studies: No Data to Display
[2024-06-20] MEDS: ceFAZolin 2,000 MG in sodium chloride 0.9% (plus) 50 ML 100 MG IV (09:08)
[2024-06-20] MEDS: lidocaine-epi 1% 20 mL INJ INJECTION (09:37)
--- NOTE | 2024-06-20 10:17 | PM.OP ---
Operative Report Date of procedure: June 20, 2024 Pre-op diagnosis: Lumbar stenosis with neurogenic claudication Post-op diagnosis: same Procedure done: 1. L4-5 laminectomy with partial facetectomy Surgeon: Chester Dunbar DO Estimated blood loss (mL): 25 Procedure: 1. L4-5 laminectomy with partial facetectomy Patient is brought to the operative suite. After undergoing anesthesia they are placed in the prone position. All areas of impingement are well padded. Patient is then prepped and draped in the normal sterile fashion. A skin incision is made over the L4-5 level. This is confirmed under c-arm guidance. A series of dilators are passed and the tubular retractor is docked on the L4 lamina. A bovie is used to clear the soft tissue off the lamina and the L 4/5 facet joint. A high speed gerard is then used to perform the laminectomy and take down the medial aspect of the L 4/5 facet joint. A kerrison rongeure was then used to take down the remaining lamina and smooth the edge of the laminectomy up to the point where the ligamentum flavum attaches. Attention was then brought to the medial aspect of the facet joint. The remaining medial aspect of the superior and inferior aspect of the facet joint were taken down with the kerrison from the pedicle of L4 to L 5. The facet joint had significant hypertrophy. Attention was then brought to the Ligamentum Flavum. The ligament was taken down from the lamina of L4 to L5 and out medially to the remaining facet joint. The ligament was thick. The dura was then exposed. The dura was in good repair. The L4 nerve was then traced with a curette out the L4/5 foramen and found to be adequately decompressed. The L5 nerve was traced with a curette around the L5 pedicle. The lateral recess was opened with a kerrison helping to further decompress the L5 nerve. Wound is then irrigated copiously with saline and surgiflo is used to stop any bleeding. The tubular retractor is removed and the wound is closed with vicryl and monocryl suture. Glue is then used to protect the wound. A sterile dressing is then placed. Patient was then placed in the supine position and transferred to the PACU in stable condition.
[2024-06-20] MEDS: HYDROcodone-acetaminophen 5-325 mg Tablet 1 TAB PO (11:00)
--- NOTE | 2024-06-20 11:25 | PC.NURSE ---
pt had quarter size area on dressing after getting up to bathroom. after dressing area has gotten slightly larger. OR staff to check dressing.
--- NOTE | 2024-06-20 11:42 | PC.NURSE ---
Dr. Dunbar in to see pt. dressing removed. no bleeding noted. new silverlon dressing applied. inst. pt to call for any concerns.
--- NOTE | 2024-06-20 11:43 | ANE.PACU2 ---
Inpatient post-anesthesia follow up: Airway intact: Yes Vital signs: Temperature 97 F Pulse Rate 57 Respiratory Rate 18 Blood Pressure 158/92 Pulse Oximetry 98 Oxygen Delivery Me thod Room Air Oxygen Flow Rate Fraction of Inspir ed Oxygen Hydration adequate: Yes Nausea and vomiting: No Pain level: 1 Mental status: Baseline
--- NOTE | 2024-06-20 12:21 | XR_ITS ---
WS: [id number] C-ARM RADIOGRAPHS LUMBAR SPINE; 2 IMAGES HISTORY: or pic, decompression COMPARISON: None available. Intraoperative imaging during spinal decompression. Marker is placed at the LEFT lower lumbar region. This is probably the L4-5 level. XR/XR lumbar spine 1V [id number] IMPRESSION: Intraoperative imaging during spinal decompression surgery.
== END | disposition home or self-care (01) ==
PROVIDERS: PCP Family Medicine; Visit Provider Orthopaedic Surgery
PROC: (CPT 63005; principal; 2024-06-20 09:25)
DX: M48.062 Spinal stenosis, lumbar region with neurogenic claudication (principal); J44.9 Chronic obstructive pulmonary disease, unspecified; K21.9 Gastro-esophageal reflux disease without esophagitis; I10 Essential (primary) hypertension; F41.1 Generalized anxiety disorder; Z87.891 Personal history of nicotine dependence
CPT/HCPCS: 63047; 72020; 76000; J0131; J0690; J1100; J2405; J2704; J2710; J3010; J3490; J7030

== ENCOUNTER → 2024-06-30 10:29 | Outpatient (BNVA) | payer MEDICARE, MEDICAID, SELFPAY | PROVIDERS: PCP Family Medicine; Visit Provider Orthopaedic Surgery | DX: Z98.890 Other specified postprocedural states (principal) | CPT/HCPCS: 99024 ==

== ENCOUNTER → 2024-07-04 10:46 | Outpatient (BNVA) | payer MEDICARE, MEDICAID, SELFPAY | PROVIDERS: PCP Family Medicine; Visit Provider Podiatrist Foot & Ankle Surgery | DX: M76.72 Peroneal tendinitis, left leg (principal); M79.672 Pain in left foot | CPT/HCPCS: 20550; J1100; J3301; J3490 ==

== ENCOUNTER → 2024-07-28 07:55 | Outpatient (BNVA) | payer MEDICARE, MEDICAID, SELFPAY | PROVIDERS: PCP Family Medicine; Visit Provider Orthopaedic Surgery | DX: Z98.890 Other specified postprocedural states (principal) | CPT/HCPCS: 99024 ==

== ENCOUNTER → 2024-09-05 11:44 | Outpatient (BNVA) | payer MEDICARE, MEDICAID, SELFPAY | PROVIDERS: PCP Family Medicine; Visit Provider Podiatrist Foot & Ankle Surgery | DX: M25.571 Pain in right ankle and joints of right foot (principal); M76.72 Peroneal tendinitis, left leg; S82.54XA Nondisplaced fracture of medial malleolus of right tibia, initial encounter for closed fracture; X58.XXXA Exposure to other specified factors, initial encounter | CPT/HCPCS: 27760; 73610; 99214 ==

== ENCOUNTER → 2024-09-15 08:52 | Outpatient (BNVA) | payer MEDICARE, MEDICAID, SELFPAY | PROVIDERS: PCP Family Medicine; Visit Provider Orthopaedic Surgery | DX: Z98.890 Other specified postprocedural states (principal) | CPT/HCPCS: 99024 ==

== ENCOUNTER → 2024-09-19 11:20 | Outpatient (BNVA) | payer MEDICARE, MEDICAID, SELFPAY | PROVIDERS: PCP Family Medicine; Visit Provider Podiatrist Foot & Ankle Surgery | DX: M25.571 Pain in right ankle and joints of right foot (principal); S82.54XD Nondisplaced fracture of medial malleolus of right tibia, subsequent encounter for closed fracture with routine healing; X58.XXXD Exposure to other specified factors, subsequent encounter | CPT/HCPCS: 73610; 99213 ==

== ENCOUNTER 2024-09-30 09:15 | Outpatient (CLI) | payer MEDICARE, MEDICAID, SELFPAY ==
--- NOTE | 2024-09-30 09:21 | MM_ITS ---
WS: [id number] BILATERAL SCREENING DIGITAL TOMOSYNTHESIS MAMMOGRAM WITH CAD HISTORY: SCREENING COMPARISON: 09/22/2023, 08/20/2023, 07/23/2022 Bilateral CC and MLO views with tomosynthesis and synthetic mammography submitted. Computer aided detection analyzed. Breast composition: There are scattered areas of fibroglandular density. No suspicious masses, microcalcifications or architectural distortion. MM/MM scr BI tomosynthesis [id number] IMPRESSION: BI-RADS: 2 - Benign. FOLLOW UP: 1 Year Follow-up
== END 2024-09-30 09:16 | disposition home or self-care (01) ==
PROVIDERS: PCP Family Medicine; Visit Provider Family Medicine
DX: Z12.31 Encounter for screening mammogram for malignant neoplasm of breast (principal); R92.323 Mammographic fibroglandular density, bilateral breasts
CPT/HCPCS: 77063; 77067

== ENCOUNTER → 2024-10-11 13:32 | Outpatient (BNVA) | payer MEDICARE, MEDICAID, SELFPAY | PROVIDERS: PCP Family Medicine; Visit Provider Podiatrist Foot & Ankle Surgery | DX: M25.571 Pain in right ankle and joints of right foot (principal); S82.54XD Nondisplaced fracture of medial malleolus of right tibia, subsequent encounter for closed fracture with routine healing; X58.XXXD Exposure to other specified factors, subsequent encounter | CPT/HCPCS: 73610; 99213 ==

== ENCOUNTER → 2024-10-24 09:59 | Outpatient (BNVA) | payer MEDICARE, OTHER, SELFPAY | PROVIDERS: PCP Family Medicine; Visit Provider Podiatrist Foot & Ankle Surgery | DX: S82.54XA Nondisplaced fracture of medial malleolus of right tibia, initial encounter for closed fracture (principal); S86.312A Strain of muscle(s) and tendon(s) of peroneal muscle group at lower leg level, left leg, initial encounter; S93.332A Other subluxation of left foot, initial encounter; X58.XXXA Exposure to other specified factors, initial encounter | CPT/HCPCS: 73610; 99213 ==

== ENCOUNTER 2024-10-24 11:06 | Outpatient (CLI) | payer MEDICARE, OTHER, SELFPAY | END 2024-10-24 11:07 | disposition home or self-care (01) | LOC: SPT 11:07 | PROVIDERS: PCP Family Medicine; Visit Provider Podiatrist Foot & Ankle Surgery | DX: Z46.89 Encounter for fitting and adjustment of other specified devices (principal); M76.71 Peroneal tendinitis, right leg | CPT/HCPCS: 97760; L1902 ==

== ENCOUNTER 2024-10-31 09:16 | Outpatient (CLI) | payer MEDICARE, MEDICAID, SELFPAY ==
--- NOTE | 2024-10-31 09:20 | CT_ITS ---
WS: [id number] LDCT LUNG CANCER SCREENING TECHNIQUE: Noncontrast CT of the chest with coronal and sagittal reformatted images. CLINICAL INFORMATION: HX OF TOBACCO USE COMPARISON: 08/19/2023 DLP: 53.81 mGy.cm DIvol: Mean CTDIvol: 1.10 (mGy) All CT scans at [facility] use at least one of these dose optimization techniques: automated exposure control; mA and/or kV adjustment per patient size (includes targeted exams where dose is matched to clinical indication); or iterative reconstruction. FINDINGS: Mild chronic emphysematous changes. Fibrosis in the lung apices. No new suspicious pulmonary parenchymal abnormalities. Aortic calcification. Normal caliber thoracic aorta. No mediastinal or hilar lymphadenopathy. No axillary lymphadenopathy. Small LEFT adrenal adenoma is stable. RIGHT Adrenal gland is normal. Normal GE junction. Stable hepatic cyst. Mild spondylitic changes thoracic spine. Chronic RIGHT rib fracture with callus formation CT/CT lung screening 18080 IMPRESSION: LUNG-RADS: 1-Negative FOLLOW UP: 12 Month: Continue annual screening with LDCT
== END 2024-10-31 09:17 | disposition home or self-care (01) ==
PROVIDERS: PCP Family Medicine; Visit Provider Family Medicine
DX: Z12.2 Encounter for screening for malignant neoplasm of respiratory organs (principal); Z87.891 Personal history of nicotine dependence; J43.9 Emphysema, unspecified; J84.10 Pulmonary fibrosis, unspecified; I70.0 Atherosclerosis of aorta; D35.02 Benign neoplasm of left adrenal gland; K76.89 Other specified diseases of liver; M47.894 Other spondylosis, thoracic region; S22.31XD Fracture of one rib, right side, subsequent encounter for fracture with routine healing; R93.7 Abnormal findings on diagnostic imaging of other parts of musculoskeletal system
CPT/HCPCS: 71271

== ENCOUNTER → 2024-11-21 08:59 | Outpatient (BNVA) | payer MEDICARE, MEDICAID, SELFPAY | PROVIDERS: PCP Family Medicine; Visit Provider Podiatrist Foot & Ankle Surgery | DX: S82.51XA Displaced fracture of medial malleolus of right tibia, initial encounter for closed fracture (principal); S86.312A Strain of muscle(s) and tendon(s) of peroneal muscle group at lower leg level, left leg, initial encounter; S93.332A Other subluxation of left foot, initial encounter; S82.54XA Nondisplaced fracture of medial malleolus of right tibia, initial encounter for closed fracture; M25.372 Other instability, left ankle; X58.XXXA Exposure to other specified factors, initial encounter | CPT/HCPCS: 73610; 99213 ==

== ENCOUNTER 2024-12-07 13:14 | Outpatient (CLI) | payer MEDICARE, MEDICAID, SELFPAY ==
[2024-12-07 13:45] VITALS: PULSE 76; RESP 18; O2SAT 96
[2024-12-07] MEDS: albuterol 2.5 mg/3 mL Neb INHALATION (13:45)
== END 2024-12-07 13:15 | disposition home or self-care (01) ==
PROVIDERS: PCP Family Medicine; Visit Provider Family Medicine
DX: J44.9 Chronic obstructive pulmonary disease, unspecified (principal); R94.2 Abnormal results of pulmonary function studies
CPT/HCPCS: 94060; 94726; 94729; J7613

== ENCOUNTER → 2024-12-26 08:53 | Outpatient (BNVA) | payer MEDICARE, MEDICAID, SELFPAY | PROVIDERS: PCP Family Medicine; Visit Provider Podiatrist Foot & Ankle Surgery | DX: M20.21 Hallux rigidus, right foot (principal); S82.54XD Nondisplaced fracture of medial malleolus of right tibia, subsequent encounter for closed fracture with routine healing; M62.461 Contracture of muscle, right lower leg; S86.312D Strain of muscle(s) and tendon(s) of peroneal muscle group at lower leg level, left leg, subsequent encounter; S93.33 Other subluxation and dislocation of foot; X58.XXXD Exposure to other specified factors, subsequent encounter | CPT/HCPCS: 99214 ==

== ENCOUNTER 2025-03-17 06:31 | Day surgery (SDC) | payer MEDICARE, MEDICAID, SELFPAY ==
[2025-03-17] VITALS (10 sets, daily range): BP systolic 130–161; BP diastolic 79–100; PULSE 70–80; RESP 10–18; TEMP 36.1–36.2; O2SAT 92–98; BMI 33.5
--- NOTE | 2025-03-17 | XR_ITS ---
WS: [id number] C-ARM RADIOGRAPHS RIGHT FOOT; 2 IMAGES HISTORY: RIGHT FOOT SURGERY COMPARISON: None available. Intraoperative imaging during RIGHT foot surgery. Plate and screw fixation across the first metatarsal phalangeal joint. XR/XR foot RT min 3V* 00390 IMPRESSION: Intraoperative imaging during plate and screw fixation at the first metatarsal phalangeal joint.
--- NOTE | 2025-03-17 07:28 | ANES.PREANE2 ---
Pre-Anesthetic Assessment Height/Weight: Height 5 ft 4 in Weight 195 lb Temp Pulse Resp BP Pulse Ox O2 Del Method 97.1 F L 79 16 148/98 98 Room Air 03/17/25 06:46 03/17/25 06:46 03/17/25 06:46 03/17/25 06:46 03/17/25 06:46 03/17/25 06:46 Preop Diagnosis: Right hallux rigidus and gastrocnemius equinus. Operation Date: 03/17/25 08:25 Proposed Procedures p RIGHT Gastrocnemius Recession(Right) - Bandar Alicea DPM s RIGHT First Metatarsophalangeal Joint Fusion(Right) - Bandar Alicea DPM s Autogenous Bone Graft RIGHT Foot(Right) - Bandar Alicea DPM Last intake: Intake Last Liquid Date 03/16/25 Last Liquid Time 20:30 Last Solid Date 03/16/25 Last Solid Time 20:00 Social No alcohol and No tobacco Exam alert, oriented x 3, clear to auscultation bilaterally and regular rate & rhythm Airway Submandibular: within normal limits Cervical ROM: within normal limits Mallampati: Class III Dentition: full Comments: Comments: lesion on tongue Anesthetic Plan ASA status: 3 Anesthesia: General Other: No prior issues with anesthesia NPO since yesterday grade 1 view with MAC 3 last time COPD, emphysema. Controlled on inhalers GERD on Protonix Hypertension, not on any medication. Preop BP 148/98 plan for GA Medications/Allergies Home Medications ?Medication ?Instructions ?Recorded ?Confirmed ?Last Taken ?Type acetaminophen 500 mg tablet 1,000 mg PO DAILY PRN pain 08/16/19 03/17/25 03/16/25 History (Tylenol Extra Strength) albuterol sulfate 90 mcg/actuation 2 puff inhalation Q6H PRN allergies 01/15/21 03/17/25 06/19/24 History aerosol inhaler loratadine 10 mg tablet (Claritin) 10 mg PO DAILY 11/19/22 03/17/25 03/16/25 History custom inserts #1 ea 01/25/24 01/19/25 Unknown Rx multivitamin 1 tab PO DAILY 03/23/24 03/17/25 03/16/25 History pantoprazole 40 mg tablet,delayed 40 mg PO DAILY 04/07/24 03/17/25 03/17/25 History release ferrous gluconate 325 mg (36 mg 325 mg PO DAILY 04/19/24 03/17/25 03/15/25 History iron) tablet fluticasone fur. 100 mcg-umeclid 1 inh inhalation .morning 10/20/24 03/17/25 03/17/25 History 62.5 mcg-vilant 25 mcg inhalat.powder (Trelegy Ellipta) gabapentin 300 mg capsule 300 mg PO DIRECTED #120 caps 10/20/24 03/17/25 03/17/25 Rx ASO #1 ea 10/24/24 01/19/25 Unknown Rx spectrum articulating AFO #1 ea 11/21/24 01/19/25 Unknown Rx bupropion HCl 75 mg tablet 75 mg PO BID #180 tabs 01/19/25 03/17/25 03/17/25 Rx propranolol 10 mg tablet 10 mg PO .morning anxiety #90 tabs 01/19/25 03/17/25 03/17/25 Rx quetiapine 50 mg tablet (Seroquel) 150 mg (3 x 50 mg) PO .9 pm #270 01/19/25 03/17/25 03/16/25 Rx tabs hydrocodone 10 mg-acetaminophen 1 tab PO Q6H PRN pain 7 days #28 03/17/25 Unknown Rx 325 mg tablet tabs Allergies Allergy/AdvReac Type Severity Reaction Status Date / Time No Known Allergies Allergy Verified 03/17/25 06:42 Current Medications Generic Name Dose Route Start Last Admin Trade Name Freq PRN Reason Stop Dose Admin Sodium Chloride 1,000 mls @ 30 mls/hr 03/17/25 06:45 03/17/25 06:56 Sodium Chloride 0.9% IV 03/18/25 06:44 30 mls/hr .Q24H BUSTER Administration PFSH Anesthesia Medical History (Updated 03/17/25 @ 07:35 by Bandar Alicea DPM) Nicotine dependence, other tobacco product, uncomplicated nicotine pouches (4 mg of nicotine) COPD (chronic obstructive pulmonary disease) Psychiatric care Borderline personality disorder Generalized anxiety disorder Major depressive disorder, recurrent severe without psychotic features Family History Brother Stroke Father CAD (coronary artery disease) Grandmother Cancer Lung disease Social History Smoking and tobacco/nicotine status: former use of tobacco/nicotine Quit status (tobacco/nicotine): has quit using Year quit tobacco: November 2021 Former quit date comment: 1 ppd X 35 years Second hand smoke exposure: Yes Alcohol intake: never Substance/Drug Use: never Adopted: No Caregiver/support person: No Lives independently: Yes Household members: none Housing: Apartment Marital status: Marital status details: since 2005 Number of children: 2 Number of grandchildren: 2 Highest education level completed: Some College, No Degree service: No Current occupational status: disabled Current occupational exposures/hazards: No Pets and animals: Yes (sugar glyder) Pets & animals: dog(s) Leisure activites: reading and other Leisure activities details: watch TV, dog sitting Sexually active: No Do you think of yourself as: Straight/Heterosexual Current gender identity: Female Jodee/Taoism: Sabianism Special jodee needs: No Agree to transfusion: Yes Female Reproductive History Para: 2 Spontaneous abortions: No
--- NOTE | 2025-03-17 07:32 | W.PM.OPSUD ---
Surgery/Procedure H&P Update DATE OF PROCEDURE: March 17, 2025 DATE H&P PERFORMED: 03/17/25 H&P UPDATE INFORMATION: I have reviewed H&P completed within last 30 days, I have examined patient prior to procedure, No changes to prior documentation and Risks and benefits of the procedure reviewed PREOP DIAGNOSIS: Right hallux rigidus and gastrocnemius equinus. PLANNED PROCEDURE: Operation Date: 03/17/25 08:25 Proposed Procedures p RIGHT Gastrocnemius Recession(Right) - Bandar Alicea DPM s RIGHT First Metatarsophalangeal Joint Fusion(Right) - MARY Donovan Autogenous Bone Graft RIGHT Foot(Right) - Bandar Alicea DPM
--- NOTE | 2025-03-17 07:33 | PM.OPSURHP ---
Providers/Chief Complaint Primary Care Provider: Joshua Connolly MD Chief Complaint: M20.21 History of Present Illness mE Upton is a 55 year old female presenting with right hallux rigidus. She reports pain and limited mobility in the first MTP joint, with confirmed arthritic changes and bone spur formation. She previously benefited from a cortisone shot but currently reports issues with her brace causing pressure and increasing pain around the toe joint. Affects standing and walking and everyday activities would like to discuss surgical options at this point as she has failed to respond to supportive shoes anti-inflammatories stretching and activity modifications. Review of Systems General: Reports: 10 or more systems reviewed and unremarkable except in HPI and below Const: Denies: fever(s) or chills Eyes: Denies: change in vision Card: Denies: chest pain or palpitations Resp: Denies: dyspnea or productive cough GI: Denies: abdominal pain, nausea or vomiting : Denies: flank pain Musc: Reports: extremity pain, joint pain, joint stiffness, limited range of motion and deformity Skin/Breast: Reports: skin tenderness; Denies: rash Neuro: Reports: difficulty walking; Denies: numbness in extremities, sensory changes or frequent falls Psych: Denies: suicidal ideation Seferino/Lymph: Denies: easy bruising Medications/Allergies Home Medications ?Medication ?Instructions ?Recorded ?Confirmed ?Last Taken ?Type acetaminophen 500 mg tablet 1,000 mg PO DAILY PRN pain 08/16/19 03/17/25 03/16/25 History (Tylenol Extra Strength) albuterol sulfate 90 mcg/actuation 2 puff inhalation Q6H PRN allergies 01/15/21 03/17/25 06/19/24 History aerosol inhaler loratadine 10 mg tablet (Claritin) 10 mg PO DAILY 11/19/22 03/17/25 03/16/25 History custom inserts #1 ea 01/25/24 01/19/25 Unknown Rx multivitamin 1 tab PO DAILY 03/23/24 03/17/25 03/16/25 History pantoprazole 40 mg tablet,delayed 40 mg PO DAILY 04/07/24 03/17/25 03/17/25 History release ferrous gluconate 325 mg (36 mg 325 mg PO DAILY 04/19/24 03/17/25 03/15/25 History iron) tablet fluticasone fur. 100 mcg-umeclid 1 inh inhalation .morning 10/20/24 03/17/25 03/17/25 History 62.5 mcg-vilant 25 mcg inhalat.powder (Trelegy Ellipta) gabapentin 300 mg capsule 300 mg PO DIRECTED #120 caps 10/20/24 03/17/25 03/17/25 Rx ASO #1 ea 10/24/24 01/19/25 Unknown Rx spectrum articulating AFO #1 ea 11/21/24 01/19/25 Unknown Rx bupropion HCl 75 mg tablet 75 mg PO BID #180 tabs 01/19/25 03/17/25 03/17/25 Rx propranolol 10 mg tablet 10 mg PO .morning anxiety #90 tabs 01/19/25 03/17/25 03/17/25 Rx quetiapine 50 mg tablet (Seroquel) 150 mg (3 x 50 mg) PO .9 pm #270 01/19/25 03/17/25 03/16/25 Rx tabs Allergies Allergy/AdvReac Type Severity Reaction Status Date / Time No Known Allergies Allergy Verified 03/17/25 06:42 PFSH PFSH: Medical History (Updated 03/17/25 @ 07:35 by Bandar Alicea DPM) Nicotine dependence, other tobacco product, uncomplicated nicotine pouches (4 mg of nicotine) COPD (chronic obstructive pulmonary disease) Psychiatric care Borderline personality disorder Generalized anxiety disorder Major depressive disorder, recurrent severe without psychotic features Family History Brother Stroke Father CAD (coronary artery disease) Grandmother Cancer Lung disease Social History Smoking and tobacco/nicotine status: former use of tobacco/nicotine Quit status (tobacco/nicotine): has quit using Year quit tobacco: November 2021 Former quit date comment: 1 ppd X 35 years Second hand smoke exposure: Yes Alcohol intake: never Substance/Drug Use: never Adopted: No Caregiver/support person: No Lives independently: Yes Household members: none Housing: Apartment Marital status: Marital status details: since 2005 Number of children: 2 Number of grandchildren: 2 Highest education level completed: Some College, No Degree service: No Current occupational status: disabled Current occupational exposures/hazards: No Pets and animals: Yes (sugar glyder) Pets & animals: dog(s) Leisure activites: reading and other Leisure activities details: watch TV, dog sitting Sexually active: No Do you think of yourself as: Straight/Heterosexual Current gender identity: Female Jodee/Yazidi: Buddhism Special jodee needs: No Agree to transfusion: Yes Female Reproductive History: Para: 2 Spontaneous abortions: No Dietary Habits: Caffeine: Yes Caffeine intake frequency: coffee Number of coffee servings: 6 and tea Number of tea servings: 12 Vital Signs Vitals Signs: Last Vital Signs Temp 97.1 F L 03/17/25 06:46 Pulse 79 03/17/25 06:46 Resp 16 03/17/25 06:46 BP 148/98 03/17/25 06:46 Pulse Ox 98 03/17/25 06:46 O2 Del Method Room Air 03/17/25 06:46 Weight: Weight last 48 hrs Weight 195 lb Physical Exam Narrative: EXAM NARRATIVE: GENERAL: Patient is alert and oriented ?3 and in no acute distress. The following is a focused bilateral lower extremity exam. VASCULAR: Dorsalis pedis and posterior tibial arteries palpable +2. Capillary refill time less than 3 seconds to the distal hallux bilaterally. Calf is supple and nontender proximally and distally. No pedal edema appreciated. Pedal hair growth present. NEUROLOGICAL: Epicritic and protopathic sensations grossly intact to the lower extremities. +2 Achilles tendon reflex noted bilaterally. Negative Tinel sign upon percussion of lower extremity nerves. DERMATOLOGICAL: Lower extremity skin is well-hydrated, normal texture and turgor. There are no open sores or lesions noted to the lower extremities. No erythema or ecchymosis present to the bilateral legs and feet. MUSCULOSKELETAL: Smooth range of motion right ankle without pain or crepitus or guarding. No pain to palpation right medial malleolus. No palpable mass along the course of the plantar fascia appreciated. No pain to palpation along the course of the bilateral Achilles tendon. No pain with [id number] compression of calcaneus, bilaterally. Muscle strength is 5/5 in all 3 cardinal planes pain-free without guarding to the foot and ankle, bilaterally. Tenderness at left peroneal tendons at peroneal groove. Tenderness at left first metatarsal phalangeal joint. A&P Assessment and plan 1. Hallux rigidus, right foot: 2. Gastrocnemius equinus of right lower extremity: 3. Right foot pain: Plan: 54-year-old female with a history of medial malleolus fracture presenting for follow-up and concerns regarding hallux rigidus. The ankle fracture is stable, requiring no further imaging or intervention at present. The hallux rigidus persists, indicated by pain and limited joint mobility with spur formation. She has failed conservative measures would like to discuss surgical options. Recommended first MTPJ arthrodesis of the right foot as a most definitive solution and she is in agreements. May require gastrocnemius recession and possible autogenous bone graft. I reviewed at length with the patient, the risks, potential complications, benefits, alternatives, expectations, and typical outcomes associated with the surgery. The risks and potential complications were explained in detail, including but not limited to infection, wound dehiscence or soft tissue complications, bleeding and hematoma, chronic edema, neuritis or nerve damage producing numbness or chronic pain, CRPS, failure to relieve pain or worsening pain, thick / painful / unsightly scar, limited motion / stiffness, malposition, delayed union, malunion, or nonunion, fracture, reaction to implants, anesthetic complications, venous thromboembolism, and deformity recurrence. I discussed the notion of no regrets with the patient as it pertains to complications and outcomes. The patient seemed to understand the nature of the proposed care and required convalescence. They asked appropriate questions, answered to their satisfaction. They are aware no guarantees can be made as to a satisfactory outcome and they understand there may be other possible unforeseen complications or outcomes not listed here that will be treated accordingly if they arise. There were no written or implied guarantees given to the patient. They gave informed consent to proceed. Right first metatarsal phalange joint fusion possible bone graft and possible gastrocnemius recession right foot. PDMP PDMP Reviewed: Not Reviewed Coding Level of Care Code Acute Code for [facility] Fwd Diagnoses Hallux rigidus, right foot M20.21 Gastrocnemius equinus of right lower extremity M62.461 Right foot pain M79.671
[2025-03-17] MEDS: ceFAZolin 2,000 mg SDV 2000 MG IVP (07:50)
[2025-03-17] MEDS: BUPivacaine liposome 13.3 mg/mL SDV 20 mL 266 MG INFILTRATI (08:25)
[2025-03-17] MEDS: BUPivacaine 0.5% INJ 30 mL 20 ML INJECTION (08:25)
--- NOTE | 2025-03-17 09:03 | W.PM.BPON ---
Date of Procedure: 10/23/23 Surgeon: Bandar Alicea DPM Supervisor Fusing Room(s): Jorge Procedure(s) performed: Right first metatarsophalangeal joint arthrodesis. Findings of the procedure(s): Right hallux rigidus. Estimated blood loss: 2 mL Specimen(s) removed: No specimens removed. Post-operative diagnosis: Right hallux rigidus.
--- NOTE | 2025-03-17 09:04 | PM.OP ---
Operative Report Date of procedure: March 17, 2025 Pre-op diagnosis: Hallux rigidus of right foot M20.21 Post-op diagnosis: Hallux rigidus of right foot M20.21 Post-op findings: Hallux rigidus right foot. Procedure done: Right first metatarsal phalangeal joint fusion. CPT code 08817 Implants: Rosanky 0 degree first metatarsophalangeal joint primary arthrodesis plate with 2.7 millimeter screws distally and 3.5 millimeter screws proximally and 3 mm homerun screw, 2.5 cc of beast plus demineralized bone matrix, 3-0 Vicryl, 4-0 Vicryl, 4-0 nylon. Specimens removed/disposition: No specimens. Pathology: No specimens. Surgeon: Bandar Alicea DPM Documentation Clerk: Jorge Estimated blood loss: 2 mL 49 minutes IV fluids: See intraoperative documentation. Urine output: None Complications: no complications Brief History: Hallux rigidus right foot is symptomatic and affects quality of everyday life. Has failed supportive shoes, orthotics and stretching and anti-inflammatories. Would like to discuss treatment options. Recommend right first metatarsal phalangeal fusion, gastroc recession and calcaneal autograft. I reviewed at length with the patient, the risks, potential complications, benefits, alternatives, expectations, and typical outcomes associated with the surgery. The risks and potential complications were explained in detail, including but not limited to infection, wound dehiscence or soft tissue complications, bleeding and hematoma, chronic edema, neuritis or nerve damage producing numbness or chronic pain, CRPS, failure to relieve pain or worsening pain, thick / painful / unsightly scar, limited motion / stiffness, malposition, delayed union, malunion, or nonunion, fracture, reaction to implants, anesthetic complications, venous thromboembolism, and deformity recurrence. I discussed the notion of no regrets with the patient as it pertains to complications and outcomes. The patient seemed to understand the nature of the proposed care and required convalescence. They asked appropriate questions, answered to their satisfaction. They are aware no guarantees can be made as to a satisfactory outcome and they understand there may be other possible unforeseen complications or outcomes not listed here that will be treated accordingly if they arise. There were no written or implied guarantees given to the patient. They gave informed consent to proceed. X-ray of right lateral foot taken 11/21/2024 shows joint space narrowing and dorsal bossing with osteophyte at the first metatarsal head and base of the proximal phalanx with subchondral sclerosing and narrowing of joint space consistent with right hallux rigidus. Procedure: Under mild sedation patient was brought to the operating room and remained on the gurney in supine position. A timeout was performed. Anesthesia was then administered by the anesthesia service. Local anesthesia was injected by myself consisting of 20 cc of 0.5% Marcaine plain in a right Ruggiero block fashion with an additional 20 cc of Exparel infiltrated proximal to the operative site subcutaneously in a grid like fashion. Well-padded pneumatic tourniquet applied to the right ankle. The right lower extremity was scrubbed, prepped and draped utilizing normal aseptic technique. Right foot and ankle were exanguinated with an Esmarch bandage and tourniquet inflated to 250 mmHg. Attention was directed to the right first metatarsal phalangeal joint noted to have decreased dorsiflexion and crepitus with range of motion. A linear longitude incision was made medial and parallel to the extensor hallucis longus tendon at the right first metatarsal phalangeal joint through skin with a #15 blade with dissection carried down through subcutaneous tissue to layer of joint capsule and periosteum utilizing a combination of sharp and blunt technique. Care was taken to retract and preserve neurovascular and tendinous structures. All bleeders were ligated and cauterized as necessary. Incision Was Performed in the Head of the First Metatarsal and Base of the Proximal Phalanx Were Prepped for Arthrodesis with Cone and Cup Reamers Followed by Saline Flush and Fenestrating Drill Bit for Subchondral Drilling the First Metatarsal Phalange Joint Was Positioned in Neutral Frontal Plane, Slight Valgus and Slight Dorsiflexion and Temporarily Fixated with a Steinmann Pin Simulating Weightbearing with Loading Her Foot against a Flat Surface Intraoperatively Her Great Toe Was in Excellent Position and Made Approximation to the Ground to Purchase but Not Excessively. The Arthrodesis Site Was Then Fixated Utilizing a Dorsal Locking Plate with 2.7 Millimeter Screws x 3 Distally and 3.5 Millimeter Screws Proximally with Excellent Bony Apposition and Compression Noted and Alignment Maintained in a Homerun Screw from Distal Medial to Proximal Lateral Obliquely through the Arthrodesis Site with a 3 Mm Cannulated Screw with Excellent Bony Apposition and Compression Noted AP Oblique and Lateral Views with Interoperative Fluoroscopy Confirmed Excellent Alignment, Hardware Placement without Violation of Adjacent Joints or Structures. The Incision Was Irrigated with Saline Solution and Closed in a Layered Fashion with capsule and periosteum reapproximated with 3-0 Vicryl, subcutaneous tissue reapproximated 4-0 Vicryl and skin with 4-0 nylon. The incision was dressed with Xeroform, sterile 4 x 4 gauze, Kerlix and Gonzalez wrap followed by application of a cam boot to the right lower extremity. Right ankle tourniquet was then deflated and a prompt hyperemic response is noted to the distal digits of the right foot. Patient tolerated the procedure and anesthesia well and was transferred to the PACU with vital signs stable and vascular status intact. Following a period of postoperative monitoring she will be discharged home without home care instructions and scheduled follow-up is to be nonweightbearing right foot immobilized with Cam boot and utilize a knee scooter or wheelchair.
[2025-03-17] MEDS: HYDROcodone-acetaminophen 10-325 mg Tablet 1 TAB PO (09:55)
--- NOTE | 2025-03-17 10:00 | ANE.PACU2 ---
Inpatient post-anesthesia follow up: Airway intact: Yes Vital signs: Temperature 97.0 F Pulse Rate 73 Respiratory Rate 18 Blood Pressure 161/90 Pulse Oximetry 94 Oxygen Delivery Me thod Room Air Oxygen Flow Rate Fraction of Inspir ed Oxygen Hydration adequate: Yes Nausea and vomiting: No Pain level: 1 Mental status: Baseline
== END 2025-03-17 10:05 | disposition home or self-care (01) ==
PROVIDERS: PCP Family Medicine; Visit Provider Podiatrist Foot & Ankle Surgery
PROC: (CPT 28750; 2025-03-17 08:15)
PROC: (CPT 28750; 2025-03-17 08:15)
DX: M20.21 Hallux rigidus, right foot (principal); M62.461 Contracture of muscle, right lower leg; K21.9 Gastro-esophageal reflux disease without esophagitis; J44.9 Chronic obstructive pulmonary disease, unspecified; F41.9 Anxiety disorder, unspecified; F32.9 Major depressive disorder, single episode, unspecified; Z87.891 Personal history of nicotine dependence; I10 Essential (primary) hypertension
CPT/HCPCS: 28750; 73630; 76000; C1713; C9359; J0666; J0690; J1100; J1885; J2250; J2405; J2704; J3010; J3490; J7030; J9999

== ENCOUNTER → 2025-04-05 11:55 | Outpatient (BNVA) | payer MEDICARE, MEDICAID, SELFPAY | PROVIDERS: PCP Family Medicine; Visit Provider Podiatrist Foot & Ankle Surgery | DX: M79.671 Pain in right foot (principal); M20.21 Hallux rigidus, right foot; M25.372 Other instability, left ankle; Z98.890 Other specified postprocedural states; M25.572 Pain in left ankle and joints of left foot | CPT/HCPCS: 73610; 73630; 99213 ==

== ENCOUNTER → 2025-05-02 07:55 | Outpatient (BNVA) | payer MEDICARE, MEDICAID, SELFPAY | PROVIDERS: PCP Family Medicine; Visit Provider Podiatrist Foot & Ankle Surgery | DX: Z98.890 Other specified postprocedural states (principal) | CPT/HCPCS: 73630; 99024 ==

== ENCOUNTER → 2025-05-29 11:04 | Outpatient (BNVA) | payer MEDICARE, MEDICAID, SELFPAY | PROVIDERS: PCP Family Medicine; Visit Provider Podiatrist Foot & Ankle Surgery | DX: Z98.890 Other specified postprocedural states (principal) | CPT/HCPCS: 73630; 99024 ==

== ENCOUNTER → 2025-06-29 09:48 | Outpatient (BNVA) | payer MEDICARE, MEDICAID, SELFPAY | PROVIDERS: PCP Family Medicine; Visit Provider Podiatrist Foot & Ankle Surgery | DX: Z98.890 Other specified postprocedural states (principal) | CPT/HCPCS: 73630; 99024 ==